=== PATIENT | female | born 1950 | race Caucasian/White ===

== ENCOUNTER 2016-12-23 12:21 | Emergency (ER) | payer MEDICARE, OTHER ==
[2015-06-15 14:44] VITALS: BMI 32.6
[~2016-12-23 12:21] MED LIST: ALBUTEROL2.5 MG/0.5 UPD; ASPIRIN325 MG PO; ATIVAN0.5 MG PO; ATROVENT 0.02%2.5 ML UPD; BROVANA15 MCG/2 M NEB; CARAFATE1 G PO; CELEXA20 MG PO; COUMADIN5 MG PO; DILANTIN100 MG PO; GABAPENTIN100 MG PO; GLUCOPHAGE1000 MG PO; MEVACOR20 MG PO; PLAVIX75 MG PO; PRILOSEC20 MG PO; PULMICORT0.25 MG/1 INH; SINGULAIR10 MG PO; ZESTORETIC 20/21 TAB PO
[2016-12-23 13:03] LABS: UDS - AMPHET NEGATIVE QUAL (NEGATIVE); UDS - BARB NEGATIVE QUAL (NEGATIVE); UDS - BENZO POSITIVE QUAL (NEGATIVE); UDS - COCAINE NEGATIVE QUAL (NEGATIVE); UDS - METH NEGATIVE QUAL (NEGATIVE); UDS - OPIATE POSITIVE QUAL (NEGATIVE); UDS - THC NEGATIVE QUAL (NEGATIVE)
[2016-12-23 13:04] LABS: BASOPHILS 0.2 % (0.0-2.0); EOSINOPHILS 0.7 % (0-7); HEMATOCRIT 40.6 % (36.0-48.0); HEMOGLOBIN 13.1 g/dL (12-16); IMMATURE GRANULOCYTES 0.1 % (0-5); LYMPHOCYTES 20.5 % (15-50); MCH 28.6 pg (26.0-34.0); MCHC 32.3 g/dL (31.0-37.0); MCV 88.6 fL (80.0-100.0); MEAN PLATELET VOLUME 8.8 fL (7.4-10.4); NEUTROPHILS 71.5 % (40-80); PLATELET COUNT 320 10x3/uL (130-400); RBC 4.58 10x6/uL (4.00-5.40); WBC 8.1 10x3/uL (4.8-10.8)
[2016-12-23 13:12] LABS: UDS - PCP NEGATIVE QUAL (NEGATIVE)
[2016-12-23 13:12] LABS: ALBUMIN 3.5 g/dL (3.4-5.0); ANION GAP 15.4 mmol/L (8-16); BILIRUBIN - TOTAL 0.2 mg/dL (0.2-1.3); CALCIUM 8.8 mg/dL (8.5-10.1); CARBON DIOXIDE 25.6 mmol/L (21.0-32.0); CREATININE - SERUM 1.2 mg/dL (0.6-1.3); PHENYTOIN (DILANTIN) 2.9 ug/mL (10.0-20.0); PROTEIN - SERUM 7.2 g/dL (6.4-8.2)
== END 2016-12-23 15:34 | disposition home or self-care (01) ==
LOC: D.ER 12:21
PROVIDERS: Emergency Medicine
DX: R56.9 Unspecified convulsions (principal); I95.9 Hypotension, unspecified; E83.42 Hypomagnesemia; I10 Essential (primary) hypertension; E11.9 Type 2 diabetes mellitus without complications

== ENCOUNTER 2016-12-25 13:39 | Emergency (ER) | payer MEDICARE, OTHER ==
[2015-06-15 14:44] VITALS: BMI 32.6
== END 2016-12-25 18:06 | disposition home or self-care (01) ==
LOC: D.ER 13:39
DX: R51 Headache (principal); W19.XXXA Unspecified fall, initial encounter; Y93.89 Activity, other specified; Y92.89 Other specified places as the place of occurrence of the external cause; I95.9 Hypotension, unspecified; R56.9 Unspecified convulsions; I10 Essential (primary) hypertension; E11.9 Type 2 diabetes mellitus without complications

== ENCOUNTER 2017-03-19 11:14 | Outpatient (CLI) | payer MEDICARE, OTHER ==
[~2017-03-19] VITALS: Ht 139.7 cm; Wt 65.9 kg
--- NOTE | ~2017-03-19 | HEMODYNAMI ---
PATIENT:KULWANT BONILLA MEDICAL RECORD: [id number] : 46 LOCATION:[facility] ADMISSION DATE: 03/19/17 Generatedon:03/19/201714:25 Patient name: KULWANT BONILLA Patient #: [id number] SSN: : 1950 Date of study: 03/19/2017 Page: Of Hemodynamic Procedure Report Patient Data Patient Demographics Procedure consent was obtained First Name: KULWANT Gender: Female Last Name: CHAD : 1950 [facility] Initial: AMBREEN Age: 66 year(s) Patient #: [id number] Race: Additional ID: [id number] Contact details [address]: [address] [place] [address] State: [place] City: [place] Zip code: [address] Past Medical History Allergies Allergen Reaction Date Comments Reported Sulfa drugs 03/19/2017 Admission Admission Data Admission Date: 03/19/2017 Admission Time: 11:14 Height (in.): 54.72 BSA: 1.53 (m2) Height (cm.): 139 BMI: 34.16 (kg/m2) Weight (lbs.): 145.51 Weight (kg.): 66 Lab Results Lab Result Date: 03/19/2017 Lab Result Time: 0:00 Biochemistry Name Units Result Min Max BUN mg/dl 14 --(--*-)-- 7 18 Creatinine mg/dl 1.1 --(--*-)-- 0.6 1.3 CBC Name Units Result Min Max Hemoglobin g/dl 13.4 -*(----)-- 13.5 17.5 Procedure Procedure Types Cath Procedure Diagnostic Procedure [facility] w/Coronaries Miscellaneous Procedures Moderate Sedation up to 15 minutes Procedure Description Procedure Date Procedure Date: 03/19/2017 Procedure Start Time: 14:05 Procedure Staff Name Function Odilon Guerra MD Performing Physician Laura Berkowitz RN Nurse Will Agrawal RT Scrub Yimi Phelan RT Monitor Procedure Data Cath Procedure Fluoroscopy Diagnostic fluoroscopy Total fluoroscopy Time: 1.7 time: 1.7 min min Diagnostic fluoroscopy Total fluoroscopy dose: 250 dose: 250 mGy mGy Contrast Material Contrast Material Type Amount (ml) Isovue 370 59 Entry Location Entry Primary Successful Side Size Upsize Upsize Entry Closure Succes sful Closure Location (Fr) 1 (Fr) 2 (Fr) Remarks Device Remarks Femoral Right 5 Fr Exoseal artery Diagnostic catheters Device Type Used For End Catheter Placement Cordis 5Fr JL 4.0 Left Coronary Catheter (MP) Angiography Cordis 5Fr 3DRC Catheter Right Coronary (MP) Angiography Cordis 5Fr Pigtail LV Angiography Catheter (MP) Procedure Medications Medication Administration Route Dosage Versed I.V. 1 mg Fentanyl I.V. 50 mcg Versed I.V. 1 mg Fentanyl I.V. 50 mcg 0.9% NaCl I.V. bolus 250 ml Hemodynamics Rest BSA: 1.53 (m2) HGB: 13.4 (g/dl) O2 Consumption: Estimated: 145.26 (ml/min) O2 Co nsumption indexed: Estimated:94.94 (ml/min/m) Heart Rate: 76 (bpm) Pressure Samples Time Site Value (mmHg) Purpose Heart Use Rate(bpm) 14:16 LV 100/4,17 Snapshot 87 14:17 AO 88/42(59) Pullback 97 14:17 LV 93/0,13 Pullback 97 Gradients Valve Time Site 1 Site 2 Mean SEP/DFP Peak To Heart Use (mmHg) (sec/min) Peak Rate (mmHg) (bpm) Aortic 14:17 LV AO 12 12 5 97 93/0,13 88/42(59) Calculations Valve P-P Mean Valve Index Valve Source Name Gradient Area Flow (cm2) Aortic 5 12 5 12 Snapshots Pre Cath Intra NCS Post Cath Vital Signs Time Heart Resp SPO2 NIBP (mmHg) Rhythm Pain Sedation Rate (ipm) (%) Status Level (bpm) 13:43:13 81 16 100 126/65(120) NSR 0 (11) 10(A) , No pain 13:47:25 81 15 100 122/71(99) NSR 0 (11) 10(A) , No pain 13:51:37 78 18 100 104/63(98) NSR 0 (11) 10(A) , No pain 13:55:45 81 19 97 91/55(74) NSR 0 (11) 10(A) , No pain 13:59:49 84 16 96 72/53(68) NSR 0 (11) 9(A) , No pain 14:03:46 87 16 96 67/51(64) NSR 0 (11) 9(A) , No pain 14:07:46 92 16 95 61/44(55) NSR 0 (11) 9(A) , No pain 14:11:39 92 16 96 73/53(69) NSR 0 (11) 9(A) , No pain 14:15:41 97 16 96 86/45(63) NSR 0 (11) 9(A) , No pain 14:20:32 95 19 94 79/46(76) NSR 0 (11) 9(A) , No pain 14:23:53 104 19 97 99/60(80) NSR 0 (11) 9(A) , No pain Medications Time Medication Route Dose Verified Delivered Reason Notes Effec tiveness by by 13:53:33 Versed I.V. 1 mg Odilon Laura for Eleuterio Berkowitz RN sedation 13:53:38 Fentanyl I.V. 50 Odilon Laura for mcg Eleuterio Berkowitz RN sedation 13:56:21 Versed I.V. 1 mg Odilon Laura for Eleuterio Berkowitz RN sedation 13:56:28 Fentanyl I.V. 50 Odilon Laura for mcg Eleuterio Berkowitz RN sedation 14:00:26 0.9% NaCl I.V. [address] guerra is bolus ml Eleuterio Berkowitz RN physician aware of pt's hypotensive state Procedure Log Time Note 13:11:15 Patient Weight : 66 kg 13:11:25 Patient Height : 139 cm 13:15:00 Barry Rivera RT(R) (CV) sent for patient. Start room use. 13:23:50 Diagnostic Cath status Elective 13:26:39 Time tracking: Regular hours 13:26:44 Plan of Care:Hemodynamics will remain stable., Cardiac rhythm will remain stable., Comfort level will be maintained., Respiratory function will remain adequate., Patient/ family verbilizes understanding of procedure., Procedure tolerated without complication., Recovers from procedure without complications.. 13:36:52 Patient received from Pre/Post Procedure Room to CCL 2 Alert and oriented. Tansferred to table in Supine position. 13:36:54 Warm blankets applied, and jamie hugger turned on for patient comfort. 13:36:54 Correct patient and procedure confirmed by team. 13:36:55 Signed procedure consent form obtained from patient. 13:36:55 ECG and BP/O2 sat monitors applied to patient. 13:42:06 Vital chart was started 13:44:12 Baseline sample Acquired. 13:44:16 Rhythm: sinus rhythm 13:44:18 Full Disclosure recording started 13:47:32 H&P Date Dictated: 03/15/2017 Within 30 days and on chart., H&P Addendum completed by physician on day of procedure. (MUST COMPLETE FOR ALL OUTPATIENTS). 13:47:34 Pre-procedure instructions explained to patient. 13:47:38 Pre-op teaching completed and patient verbalized understanding. 13:47:40 Family in waiting room. 13:47:42 Patient NPO since Breakfast. 13:47:52 Patient allergic to Sulfa drugs 13:47:56 Is the patient allergic to Iodine/contrast media? No. 13:47:58 Is patient on blood thinner?Yes 13:48:50 COUMADIN 5 DAYS AGO 13:48:57 Patient diabetic? Yes. 13:48:59 If diabetic: On Metformin? Yes 13:49:07 If on Metformin: Last Dose? 03/16/2017 13:49:13 Patient not . Patient is over age 55. 13:49:15 ----Pre-sedation anethsthesia assessment.---- 13:49:59 Previous problem with sedation/anesthesia? No WAS TOLD SHE DID, CAN NOT REMEMBER WHAT 13:50:03 Snore? No 13:50:05 Sleep apnea? No 13:50:16 Opens mouth fully? Yes 13:50:18 Sticks out tongue? Yes 13:50:27 Airway obstruction? Yes COPD 13:50:33 Dentures? Yes IN TIGHT 13:50:39 Pre procedure: right dorsailis pedis pulse 1+ Palpable, but thready & weak; easily obliterated 13:51:34 Patient pain scale 0/10 ?. 13:51:48 IV patent on arrival in left hand with 0.9% NaCl at [facility]. 13:52:40 Lab Result : BUN 14 mg/dl 13:52:40 Lab Result : Creatinine 1.1 mg/dl 13:52:40 Lab Result : Hemoglobin 13.4 g/dl 13:52:45 Lab results completed and on chart. 13:52:49 Right groin area was prepped with chlora-prep and draped in sterile fashion 13:52:50 Alarms reviewed by R. N. 13:52:50 Sharps counted by scrub and verified by R.N. 13:52:55 Physician arrived 13::55 --------ALL STOP TIME OUT------ 13:52:56 Final Timeout: patient, procedure, and site verified with staff and physician. All members of the team are in agreement. 13:52:59 Right groin site verified by team. 13:53:03 Physical assessment completed. ASA score P 2 - A patient with mild systemic disease as per Odilon Guerra MD. 13:53:07 Sedation plan: IV Moderate Sedation Versed, Fentanyl 13:53:33 Versed 1 mg I.V. was administered by Laura Berkowitz RN; for sedation; 13:53:38 Fentanyl 50 mcg I.V. was administered by Laura Berkowitz RN; for sedation; 13:55:13 Use device set Femoral Dx 13:55:15 Acist Syringe opened to sterile field. 13:55:16 Bag Decanter opened to sterile field. 13:55:16 Medline Cath Pack opened to sterile field. 13:55:17 Terumo 5Fr Cascilla Sheath opened to sterile field. 13:55:19 St Niko 260cm J .035 wire opened to sterile field. 13:55:20 Acist Hand Control opened to sterile field. 13:55:20 Acist Manifold opened to sterile field. 13:55:22 Diagnostic Infinity 5Fr Multipack catheter opened to sterile field. 13:55:22 Tegaderm 4 x 4 opened to sterile field. 13:56:21 Versed 1 mg I.V. was administered by Laura Berkowitz RN; for sedation; 13:56:28 Fentanyl 50 mcg I.V. was administered by Laura Berkowitz RN; for sedation; 14:00:26 0.9% NaCl 250 ml I.V. bolus was administered by Laura Berkowitz RN; Per physician; dr guerra is aware of pt's hypotensive state 14:05:38 Procedure started. 14:05:45 Local anesthetic to right femoral artery with Lidocaine 2% by Odilon Guerra MD.INITIAL ACCESS ONLY 14:07:16 A 5 Fr sheath was inserted into the Right Femoral artery 14:11:32 A Cordis 5Fr JL 4.0 Catheter (MP) was advanced over the wire and used for Left Coronary Angiography. 14:11:35 LCA angiography performed. 14:13:41 Catheter removed. 14:13:59 A Cordis 5Fr 3DRC Catheter (MP) was advanced over the wire and used for Right Coronary Angiography. 14:15:24 RCA angiography performed. 14:17:36 A Cordis 5Fr Pigtail Catheter (MP) was advanced over the wire and used for LV Angiography. 14:19:11 Cordis 5Fr Exoseal opened to sterile field. 14:19:24 Sheath removed intact; hemostasis achieved with Exoseal to the Right Femoral artery. 14:20:23 Procedure ended.(Physican Out) 14:21:04 Fluoroscopy time 01.70 minutes. 14:21:11 Fluoroscopy dose: 250 mGy 14:21:11 Flurop Dose total: 250 14:21:52 Contrast amount:Isovue 370 59ml. 14:21:56 Sharps counted by scrub and verified by R.N. 14:21:59 Insertion/operative site no bleeding no hematoma. 14:22:02 Post-op/insertion site Right Femoral artery dressed using a 4 x 4 and Tegaderm. 14:22:05 Post right femoral artery:stable 14:22:07 Post Procedure Pulses reassessed and unchanged 14:22:11 Post-procedure physical assessment completed. ASA score P 2 - A patient with mild systemic disease as per Odilon Guerra MD. 14:22:17 Post procedure rhythm: unchanged. 14:22:48 Post procedure instruction explained to patient.Patient verbalizes understanding. 14:22:49 Procedure and supply charges have been captured, reviewed, submitted and are correct. 14:23:29 Procedure type changed to Cath procedure, Diagnostic procedure, LHC, LHC w/Coronaries, Miscellaneous Procedures, Moderate Sedation up to 15 minutes 14:24:56 Report given to Pre/Post Procedure Room. 14:24:59 Patient transfered to Pre/Post Procedure Room with Stretcher. 14:25:29 Vital chart was stopped Device Usage Item Name Manufacture Quantity Catalog Hospital Part Current Minimal Lo t# / Number Charge Number Stock Stock Serial# Code Acist Acist 1 [id number] [id number] 141874 735685 20 Syringe Medical [employer] Inc Bag Microtek 1 2002S 835667 77349 360217 5 Decanter Medical Inc. Medline Cardinal 1 [id number] 30689 399928 5 Cath Pack Health Terumo 5Fr Terumo 1 [id number] 467317 803409 169083 [address] Niko St Niko 1 038114 412576 555279 976343 30 260cm J .035 wire Acist Hand Acist 1 29305 938327 663501 634816 5 Control Medical Systems Inc Acist Acist 1 88616 191156 253388 283720 5 Manifold Medical Systems Inc Diagnostic Cardinal 1 [id number] 588711 29025 608096 30 Infinity Health 5Fr Multipack catheter Tegaderm 4 3M 1 1626W 628715 125698 342186 5 x 4 Cordis 5Fr Cardinal 1 393459 5 JL 4.0 Health Catheter (MP) Cordis 5Fr Cardinal 1 317032 5 3DRC Health Catheter (MP) Cordis 5Fr Cardinal 1 855013 5 Pigtail Health Catheter (MP) Cordis 5Fr Cardinal 1 EX500 492380 412903 905536 10 17 888798 [facility] Smava Signature Audit [place] Stage Time Signature Unsigned Intra-Procedure 03/19/2017 Yimi 2:25:26 PM Shuffield RT (R) (CV) Signatures Monitor : Yimi Signature : Johanaield RT Date : Time : [facility] [address] [place] [address]
[2017-03-19] MEDS ORDERED: LANTUS INSULIN10 ML SC (11:37)
[2017-03-19] MEDS ORDERED: OMEPRAZOLE20 M1 PO (11:37)
[2017-03-19] MEDS ORDERED: XALATAN 0.0052.5 ML EACH EYE (11:38)
[2017-03-19] MEDS ORDERED: LOVASTATIN20 MG PO (11:39)
[2017-03-19] MEDS ORDERED: PEPCID AC20 MG PO (11:39)
[2017-03-19] MEDS ORDERED: PROVENTIL HFA6.7 GM INH (11:39)
[2017-03-19] MEDS ORDERED: ULTRAM50 MG PO (11:40)
[2017-03-19 11:48] VITALS: BP 129/63; Ht 139.7 cm; Wt 65.9 kg
[2017-03-19 11:53] LABS: BASOPHILS 0.5 % (0-2); EOSINOPHILS 1.4 % (0-7); HEMATOCRIT 40.5 % (36.0-48.0); HEMOGLOBIN 13.4 g/dL (12-16); IMMATURE GRANULOCYTES 0.2 % (0-5); LYMPHOCYTES 29.2 % (15-50); MCH 28.9 pg (26.0-34.0); MCHC 33.1 g/dL (31.0-37.0); MCV 87.5 fL (80.0-100.0); MEAN PLATELET VOLUME 9.1 fL (7.4-10.4); MONOCYTES 9.4 % (2-11); NEUTROPHILS 59.3 % (40-80); PLATELET COUNT 285 10x3/uL (130-400); RBC 4.63 10x6/uL (4.00-5.40); RDW 13.6 % (11.5-14.5); WBC 5.7 10x3/uL (4.8-10.8)
[2017-03-19 12:01] LABS: ANION GAP 13.8 mmol/L (8-16); CALCIUM 9.2 mg/dL (8.5-10.1); CARBON DIOXIDE 25.2 mmol/L (21.0-32.0); CREATININE - SERUM 1.1 mg/dL (0.6-1.3)
[2017-03-19 13:03] LABS: INR 1.05 (0.85-1.17); PROTIME 13.6 SECONDS (11.6-15.0)
--- NOTE | 2017-03-19 14:45 | NUR ---
1440 RECEIVED PT FROM EAR FLAP BINDER, PT IS DROWSY, DENIES ANY C/O. DRESSING TO RIGHT GROIN IS CDI, AREA IS SOFT AND NON-TENDER. PEDAL PULSES PALPABLE. RR EVEN AND UNLABORED. NORMAL SINUS RHYTHM. PT INSTRUCTED TO KEEP HEAD TO PILLOW AND RIGHT LEG STRAIGHT, PT VERBALIZES UNDERSTANDING. AT BEDSIDE, CALL LIGHT IN REACH.
--- NOTE | 2017-03-19 15:15 | NUR ---
NO CHANGES IN RIGHT GROIN, AT SIDE
--- NOTE | 2017-03-19 16:50 | NUR ---
IV D'C WITH CATH TIP INTACT, UP TO RESTROOM- VOID, DENIES PAIN, WRITTEN AND VERBAL INSTRUCTIONS GIVEN. D'C HOME WITH .
== END 2017-03-19 17:10 | disposition home or self-care (01) ==
LOC: D.CATH 11:14
PROVIDERS: Internal Medicine Cardiovascular Disease
DX: I20.9 Angina pectoris, unspecified (principal); Z01.812 Encounter for preprocedural laboratory examination

== ENCOUNTER → 2017-08-14 16:30 | Outpatient (CLI) | payer MEDICARE, OTHER ==
[2017-03-19 11:48] VITALS: BMI 33.7
[~2017-08-14 16:30] MED LIST changes: +LANTUS INSULIN10 ML SC; +LOVASTATIN20 MG PO; +OMEPRAZOLE20 M1 PO; +PEPCID AC20 MG PO; +PROVENTIL HFA6.7 GM INH; +ULTRAM50 MG PO; +XALATAN 0.0052.5 ML EACH EYE
== END | disposition home or self-care (01) ==
LOC: D.MAMMO 14:30
DX: Z12.31 Encounter for screening mammogram for malignant neoplasm of breast (principal)

== ENCOUNTER 2017-09-27 20:38 | Emergency (ER) | payer MEDICARE, OTHER ==
[2017-03-19 11:48] VITALS: BMI 33.7
[2017-09-27 21:53] LABS: APTT 33.3 SECONDS (22.8-39.4); INR 2.38 (0.85-1.17); PROTIME 25.3 SECONDS (11.6-15.0)
[2017-09-27 21:57] LABS: BASOPHILS 0.3 % (0-2); EOSINOPHILS 1.5 % (0-7); HEMATOCRIT 41.3 % (36.0-48.0); HEMOGLOBIN 13.1 g/dL (12-16); IMMATURE GRANULOCYTES 0.1 % (0-5); LYMPHOCYTES 28.8 % (15-50); MCH 28.8 pg (26.0-34.0); MCHC 31.7 g/dL (31.0-37.0); MCV 90.8 fL (80.0-100.0); MEAN PLATELET VOLUME 9.3 fL (7.4-10.4); MONOCYTES 11.6 % (2-11); NEUTROPHILS 57.7 % (40-80); PLATELET COUNT 266 10x3/uL (130-400); RBC 4.55 10x6/uL (4.00-5.40); RDW 13.4 % (11.5-14.5); WBC 9.1 10x3/uL (4.8-10.8)
[2017-09-27 22:06] LABS: ALBUMIN 3.7 g/dL (3.4-5.0); ANION GAP 18.2 mmol/L (8-16); CALCIUM 8.9 mg/dL (8.5-10.1); CARBON DIOXIDE 22.4 mmol/L (21.0-32.0); CREATININE - SERUM 1.1 mg/dL (0.6-1.3); PHENYTOIN (DILANTIN) 3.9 ug/mL (10.0-20.0); POTASSIUM - SERUM 4.6 mmol/L (3.5-5.1); PROTEIN - SERUM 7.1 g/dL (6.4-8.2)
[2017-09-27 22:12] LABS: BILIRUBIN - TOTAL 0.07 mg/dL (0.2-1.3)
[2017-09-28 00:12] LABS: APPEARANCE CLEAR (CLEAR); BILIRUBIN NEGATIVE (NEGATIVE); COLOR YELLOW (YELLOW); GLUCOSE NEGATIVE (NEGATIVE); KETONE NEGATIVE (NEGATIVE); NITRITE NEGATIVE (NEGATIVE); PROTEIN NEGATIVE (NEGATIVE); UROBILINOGEN NORMAL (NORMAL)
[2017-09-28 00:19] LABS: UDS - AMPHET NEGATIVE QUAL (NEGATIVE); UDS - BARB NEGATIVE QUAL (NEGATIVE); UDS - BENZO POSITIVE QUAL (NEGATIVE); UDS - COCAINE NEGATIVE QUAL (NEGATIVE); UDS - OPIATE POSITIVE QUAL (NEGATIVE); UDS - PCP NEGATIVE QUAL (NEGATIVE); UDS - THC NEGATIVE QUAL (NEGATIVE)
== END 2017-09-28 00:57 | disposition home or self-care (01) ==
LOC: D.ER 20:38
PROVIDERS: Emergency Medicine; Physician Assistant Medical
DX: R56.9 Unspecified convulsions (principal); R41.82 Altered mental status, unspecified; I10 Essential (primary) hypertension; E11.9 Type 2 diabetes mellitus without complications

== ENCOUNTER → 2017-10-14 13:59 | Outpatient (CLI) | payer MEDICARE, OTHER ==
[2017-03-19 11:48] VITALS: BMI 33.7
== END | disposition home or self-care (01) ==
LOC: D.MAMMO 09-13 11:30 → D.US 09-13 13:00 → D.MAMMO 13:30
DX: R92.8 Other abnormal and inconclusive findings on diagnostic imaging of breast (principal)

== ENCOUNTER 2017-12-26 13:08 | Emergency (ER) | payer MEDICARE, OTHER ==
[2017-03-19 11:48] VITALS: BMI 33.7
[2017-12-26 14:17] LABS: BASOPHILS 0.3 % (0-2); EOSINOPHILS 3.5 % (0-7); HEMATOCRIT 41.7 % (36.0-48.0); HEMOGLOBIN 13.5 g/dL (12-16); IMMATURE GRANULOCYTES 0.2 % (0-5); LYMPHOCYTES 37.2 % (15-50); MCH 29.4 pg (26.0-34.0); MCHC 32.4 g/dL (31.0-37.0); MCV 90.8 fL (80.0-100.0); MONOCYTES 8.5 % (2-11); NEUTROPHILS 50.3 % (40-80); PLATELET COUNT 217 10x3/uL (130-400); RBC 4.59 10x6/uL (4.00-5.40); RDW 13.9 % (11.5-14.5)
[2017-12-26 14:22] LABS: INR 3.09 (0.85-1.17); PROTIME 31.1 SECONDS (11.6-15.0)
[2017-12-26 14:24] LABS: APTT 36.2 SECONDS (22.8-39.4)
[2017-12-26 14:25] LABS: D-DIMER-QUANTITATIVE < 0.27 ug/mLFEU (0.20-0.54)
[2017-12-26 14:28] LABS: ALBUMIN 3.6 g/dL (3.4-5.0); ALKALINE PHOSPHATASE 193 U/L (46-116); ALT (SGPT) 29 U/L (10-68); BILIRUBIN - TOTAL 0.12 mg/dL (0.2-1.3); CALC OSMOLALITY 271 mosm/kg (275-300); CALCIUM 8.3 mg/dL (8.5-10.1); CARBON DIOXIDE 22.9 mmol/L (21.0-32.0); CHLORIDE - SERUM 100 mmol/L (98-107); CREATININE - SERUM 1.2 mg/dL (0.6-1.3); GLUCOSE 125 mg/dL (74-106); POTASSIUM - SERUM 5.1 mmol/L (3.5-5.1); PROTEIN - SERUM 7.2 g/dL (6.4-8.2); SODIUM 135 mmol/L (136-145); UREA NITROGEN 16 mg/dL (7-18); eGFR NON AFRICAN AMERICAN 47 mL/min (90-120)
[2017-12-26 14:39] LABS: CKMB 0.7 U/L (0.0-3.6); CREATINE KINASE 50 UL (21-215)
[2017-12-26 14:55] LABS: TROPONIN-I < 0.017 ng/mL (0.000-0.060)
== END 2017-12-26 17:59 | disposition home or self-care (01) ==
LOC: D.ER 13:08
PROVIDERS: Family Medicine
DX: E11.649 Type 2 diabetes mellitus with hypoglycemia without coma (principal); I10 Essential (primary) hypertension

== ENCOUNTER → 2018-09-11 12:22 | Outpatient (CLI) | payer MEDICARE, OTHER ==
[2017-03-19 11:48] VITALS: BMI 33.7
== END | disposition home or self-care (01) ==
LOC: D.RAD 12:22
DX: R13.12 Dysphagia, oropharyngeal phase (principal)

== ENCOUNTER 2019-01-28 19:00 | Outpatient (CLI) | payer MEDICARE, OTHER ==
[2017-03-19 11:48] VITALS: BMI 33.7
== END 2019-01-28 23:59 | disposition home or self-care (01) ==
LOC: D.MAMMO 19:00
PROVIDERS: ATTEND Family Medicine
DX: R92.8 Other abnormal and inconclusive findings on diagnostic imaging of breast (principal)

== ENCOUNTER → 2019-02-13 08:28 | Outpatient (CLI) | payer MEDICARE, OTHER ==
[2017-03-19 11:48] VITALS: BMI 33.7
[~2019-02-13 08:28] MED LIST changes: +ELIQUIS5 MG PO; +EZFE 200200 MG PO; +KEPPRA500 MG PO; +LEVOTHYROXINE75 MCG PO; +LOPRESSOR25 MG PO; +ZONEGRAN100 MG PO
== END | disposition home or self-care (01) ==
LOC: D.RT 08:28
PROVIDERS: ATTEND Internal Medicine Pulmonary Disease
DX: J45.909 Unspecified asthma, uncomplicated (principal)

== ENCOUNTER 2019-03-26 08:49 | Inpatient (IN) | payer MEDICARE, OTHER ==
[2019-03-25 10:57] LABS: HEMATOCRIT 42.5 % (36.0-48.0); HEMOGLOBIN 14.4 g/dL (12-16); MCH 30.4 pg (26.0-34.0); MCHC 33.9 g/dL (31.0-37.0); MCV 89.7 fL (80.0-100.0); MEAN PLATELET VOLUME 8.6 fL (7.4-10.4); RBC 4.74 10x6/uL (4.00-5.40); RDW 13.4 % (11.5-14.5); WBC 7.5 10x3/uL (4.8-10.8)
[2019-03-25 11:24] LABS: ANION GAP 16.8 mmol/L (8-16); CALCIUM 8.4 mg/dL (8.5-10.1); CARBON DIOXIDE 24.2 mmol/L (21.0-32.0); CREATININE - SERUM 0.9 mg/dL (0.6-1.3)
[~2019-03-26] VITALS: Ht 139.7 cm; Wt 69.1 kg
[2019-03-26] VITALS (7 sets, daily range): BP systolic 99–161; BP diastolic 52–81; Ht 139.7 cm; Wt 69.1 kg
--- NOTE | ~2019-03-26 | OP ---
PATIENT NAME: KULAWNT BONILLA MEDICAL RECORD: [id number] :46 LOCATION:[facility] D.2308 ADMISSION DATE: SURGEON: MIKO GILLILAND DATE OF OPERATION: 03/26/2019 SURGEON: Miko Gilliland DPM PREOPERATIVE DIAGNOSIS: Hallux abductovalgus deformity, right foot. POSTOPERATIVE DIAGNOSIS: Hallux abductovalgus deformity, right foot. PROCEDURE: Timo bunionectomy, right foot. ANESTHESIA: Local with monitored anesthesia care. HEMOSTASIS: Pneumatic ankle tourniquet inflated to 250 mmHg. ESTIMATED BLOOD LOSS: Minimal. MATERIALS: One 2.5-mm [employer] headless Dart-Fire screw. INJECTABLES: A 10 cc of 0.5% bupivacaine plain. INDICATIONS: The patient has long-standing history of pain associated with the right foot deformity. We have discussed the proposed procedure. Risks and benefits were reviewed. Complications were discussed. All questions were answered. She was appropriately consented for Timo bunionectomy of right foot. DESCRIPTION OF PROCEDURE: The patient was brought in the operating room and placed on the operating table in supine position. Time-out was called with Dr. Gilliland, who identified the patient, the surgical site, and the surgery to be performed. Once appropriate anesthesia was obtained, the foot was prepped and draped in the usual aseptic manner. Procedure was Timo bunionectomy, right foot. Attention was directed to the dorsal aspect of the first metatarsophalangeal joint, where a 6-cm linear incision was made just medial to the extensor hallucis longus tendon. This incision was carried deep to soft tissue with care being taken to retract all vital neurovascular structures. All bleeders were cauterized along the way. The first intermetatarsal space was then entered utilizing both sharp and blunt dissection. The conjoined tendon of the adductor hallucis muscle was noted at the base of the proximal phalanx and it was sharply transected at this level. Attention was directed further proximally to the level of the fibular sesamoidal ligament and it was sharply transected as well. Attention was then directed to the dorsal aspect of the first metatarsophalangeal joint. The periosteum was reflected from the head of the first metatarsal and the base of the proximal phalanx, thus revealing the first metatarsophalangeal joint. Utilizing a sagittal saw, the hypertrophied medial eminence of the first metatarsal was resected. The sagittal saw was then utilized to create a V-shaped osteotomy in the head of the first metatarsal. This was a V-shaped osteotomy with the apex oriented distally. It was a [id number] osteotomy. The capital fragment was translocated laterally and impacted upon the first metatarsal shaft. OPERATIVE REPORT [id number] BONILLAUKLWANTMendy CROOK Next, utilizing team manager's recommended technique, one 2.5-mm x 18-mm screw was placed across the osteotomy. All remaining overhanging bone from the medial aspect of the first metatarsal shaft was resected. Excellent fixation was noted after placement of the screw. The surgical site was then irrigated with copious amounts of normal sterile saline via bulb syringe. The periosteum was reapproximated and coapted using 3-0 Vicryl. The subcutaneous was reapproximated and coapted using 4-0 Vicryl. The skin was reapproximated and coapted using 4-0 nylon. A dressing consisting of Xeroform, 4 x 4's, Kerlix, and Coban was applied to the right foot. The pneumatic ankle tourniquet was deflated and cap refill time was immediate to all digits of the right foot. The patient tolerated the procedure and the anesthesia well. She left the operating room with vital signs stable and capillary refill time intact. The patient was discharged home with instructions to ice and elevate the right foot. She was dispensed a boot to further help offload the foot. She has my cell phone number for any afterhours difficulties. There were no complications with this case. We will follow up with her in one week in the office. TRANSINT:[id number] Voice Confirmation ID: [id number] DOCUMENT ID: [id number] MIKO GILLILAND CC: [id number] DICTATION DATE: 03/26/19 164 SAWMILL EQUIPMENT OPERATOR: 03/26/19 1814 [facility] [address] [place] [address]
--- NOTE | ~2019-03-26 | CN ---
PATIENT NAME:KULWANT BONILLA MEDICAL RECORD: [id number] : 46 LOCATION:MIGUELD.2308 ADMIT DATE: ACCOUNT: [id number] CONSULTING PHYSICIAN: BRANDON HOUSTON MD REFERRING PHYSICIAN: MIKO ESQUIVEL DATE OF CONSULTATION: 03/26/2019 MEDICAL CONSULT REASON FOR CONSULTATION: Medical management of the patient postoperatively with seizures. HISTORY OF PRESENT ILLNESS: The patient is a 68-year-old female with long-standing history of generalized tonic-clonic seizures. She is followed by Dr. Nayana Yuan, neurologist at [facility]. She underwent elective right bunionectomy today, and in recovery, reportedly had a tonic-clonic seizure. She had her Dilantin this morning but not her Keppra, gabapentin, or zonisamide. She had been postictal for approximately one hour and now is awake and talking coherently. She denies headache or visual change. She had a seizure with UTI in September of this year, treated at [facility]. She had been on Vimpat in the past and apparently this has been discontinued. She otherwise feels well. PAST MEDICAL HISTORY: Chronic seizure disorder, COPD, chronic renal insufficiency with unilateral left kidney, type 2 diabetes mellitus, GERD, essential hypertension, hyperlipidemia, inflammatory arthritis, peptic ulcer disease history, remote history of pulmonary embolus, history of esophageal stricture, and lumbar spondylolisthesis. PAST SURGICAL HISTORY: Appendectomy. She has had lumbar discectomy, cholecystectomy, hysterectomy, PTCA, fixation of unstable patella, and right bunionectomy today. She has had carpal tunnel release on the right and left, and had total knee arthroplasty on the right in 2013. ALLERGIES: SULFA. FAMILY HISTORY: Father , had heart disease and diabetes. SOCIAL HISTORY: Former smoker, quit 34 years ago. She does not use alcohol. HOME MEDICATIONS: Eliquis 5 mg a day, Mevacor 20 mg at bedtime, Dilantin 400 mg b.i.d., Singulair 10 mg at bedtime, metformin 1000 mg b.i.d., omeprazole 20 mg p.o. daily, levothyroxine 75 mcg p.o. q.a.m. a.c., zonisamide 100 mg p.o. b.i.d., gabapentin 300 mg p.o. t.i.d., Keppra 500 mg p.o. b.i.d., famotidine 40 mg b.i.d., Ventolin HFA one puff q. 4 hours p.r.n., latanoprost 0.005% eyedrops one drop in both eyes at bedtime, Ativan 0.5 mg b.i.d. p.r.n. anxiety, and Lantus SoloSTAR insulin 20 units subcutaneous at bedtime. REVIEW OF SYSTEMS: GENERAL: No recent fever or fatigue. HEENT: No recent visual change, sinus congestion, or sore throat. RESPIRATORY: No SOB or cough. CARDIAC: No chest pain, claudication, or edema. GASTROINTESTINAL: No nausea, vomiting, change in stools, or blood per rectum. GENITOURINARY: No incontinence. GYNECOLOGIC: No vaginal bleeding. CONSULT REPORT [id number] KULWANT BONILLA ENDOCRINE: Denies polyuria, polydipsia, heat or cold intolerance. NEUROLOGIC: She has had history of TIA and recurrent chronic seizures for years. MUSCULOSKELETAL: She has pain in her right foot postoperatively and she has moderate lumbar disc pain as well without sciatica. INTEGUMENT: No recent rash or itching. PSYCHIATRIC: Denies depressed mood. PHYSICAL EXAMINATION: VITAL SIGNS: Temperature 97.2 Fahrenheit orally, pulse 84 and regular, respirations are 16, blood pressure is 120/54 with sat of 90% on 2 liters. GENERAL: Alert and oriented. HEENT: Eyes are clear. Pupils are reactive. Lens implants in each eye. Sclerae nonicteric. Oropharynx unremarkable. Her tongue is atraumatic as are her lips. NECK: Supple. CHEST: Clear. HEART: Regular rate. ABDOMEN: Obese, soft, and nontender. No organomegaly. GENITOURINARY: Deferred. EXTREMITIES: She has a healed right total knee replacement scar over the right. Her right foot is in an operative ankle high walking boot with dressing postoperative. Left leg is unremarkable. NEUROLOGIC: She is oriented to person, place, and time. Cranial nerves are grossly intact. Gait was not tested. LABORATORY DATA: Dilantin and Keppra levels are pending. Her white count is 5600 with H&H of 14 and 42.2 respectively. Chemistry is unremarkable with glucose of 106. Cardiac enzymes are negative. DIAGNOSTIC DATA: Preoperative chest x-ray shows chronic COPD changes, some atelectasis in the left mid lung, and right apical pleural calcification. ASSESSMENT: History of chronic seizure disorder with seizure postoperatively, probably due to missing neuroleptic drugs and n.p.o. status; diabetes mellitus; hypertension; hyperlipidemia; history of PE, on lifetime anticoagulation; and lumbar spondylolisthesis. PLAN: The patient will be monitored in the ICU. We will place on IV fluids tonight. Advance diet as tolerated. P.R.N. Ativan as needed. We will check Dilantin and Keppra levels. We will confirm her appropriate neuroleptic drug dosages with the pharmacy as there is some question at this time in the patient's mind. TRANSINT:[id number] Voice Confirmation ID: [id number] DOCUMENT ID: [id number] BRANDON HOUSTON MD CC: [id number] DICTATION DATE: 03/26/191816 PASTE MIXING SUPERVISOR: 03/26/192023 [facility] [address] [id number]
[~2019-03-26 08:49] MED LIST changes: -LOPRESSOR25 MG PO
[2019-03-26] MEDS ORDERED: LOPRESSOR25 MG PO (10:00)
[2019-03-26 13:48] LABS: BASOPHILS 0.5 % (0-2); EOSINOPHILS 1.6 % (0-7); HEMATOCRIT 42.2 % (36.0-48.0); IMMATURE GRANULOCYTES 0.4 % (0-5); LYMPHOCYTES 38.2 % (15-50); MCH 29.9 pg (26.0-34.0); MCHC 33.2 g/dL (31.0-37.0); MCV 90.2 fL (80.0-100.0); MEAN PLATELET VOLUME 8.7 fL (7.4-10.4); MONOCYTES 9.5 % (2-11); NEUTROPHILS 49.8 % (40-80); PLATELET COUNT 223 10x3/uL (130-400); RBC 4.68 10x6/uL (4.00-5.40); RDW 13.7 % (11.5-14.5)
[2019-03-26 13:54] LABS: WBC 5.6 10x3/uL (4.8-10.8)
[2019-03-26 14:01] LABS: CALC OSMOLALITY 283 mosm/kg (275-300); CALCIUM 8.3 mg/dL (8.5-10.1); CARBON DIOXIDE 26.2 mmol/L (21.0-32.0); CHLORIDE - SERUM 107 mmol/L (98-107); CREATININE - SERUM 0.8 mg/dL (0.6-1.3); GLUCOSE 106 mg/dL (74-106); PHENYTOIN (DILANTIN) 11.7 ug/mL (10.0-20.0); POTASSIUM - SERUM 4.5 mmol/L (3.5-5.1); SODIUM 143 mmol/L (136-145); UREA NITROGEN 11 mg/dL (7-18); eGFR NON AFRICAN AMERICAN 75 mL/min (90-120)
[2019-03-26 14:17] LABS: CREATINE KINASE 37 UL (21-215); TROPONIN-I < 0.017 ng/mL (0.000-0.060)
--- NOTE | 2019-03-26 14:33 | NUR ---
RECEIVED PATIENT. HOOKED UP TO MONITOR. AWAKE ALERT AND ORIENTED. VSS. WILL CHECK ORDERS AND MONITOR
--- NOTE | 2019-03-26 15:15 | NUR ---
AT 1232 PATIENT STATED TO ME THAT SHE WAS STARTING TO HAVE MID STERNAL CHEST PAIN, SHARP IN NATURE. WHEN I ASKED HER IF HER PAIN WAS CONSTANT OR INTERMITTENT SHE TOLD ME THAT IT WAS CONSTANT. AT THIS TIME, PATIENT ROLLED HER EYES BACK IN HER HEAD AND BECAME UNRESPONSIVE AND WENT UNCONSCIOUS. BLOOD PRESSURE 106/69, HR 84, RESPIRATIONS 23, PCO2 DROPPED FROM 98% TO 84%. ANESTHESIA WAS CONSULTED. DR PETERSON AND MILADIS CALHOUN,CONCRETE CRAFTSMAN AT BEDSIDE. AT 1235 PT BEGAN ACTIVELY HAVING A SEIZURE, HER HANDS WERE DRAWN UP, EYES CLOSED AND WOULD NOT RESPOND TO ANY STIMULI. AT 1240 VERBAL ORDERS RECEIVED PER DR. PETERSON TO ADMINISTER VERSED 2MG STAT IN PACU NOW. ORDERS RECEIVED AND IMPLEMENTED. WILL CONTINUE TO MONITOR.
--- NOTE | 2019-03-26 15:24 | NUR ---
AT [address] ROSE (MED CONSTRUCTION GRIP) TO COME AND EVALUATE THIS PATIENT IN PACU.
--- NOTE | 2019-03-26 15:26 | NUR ---
AT 1245 DR PETERSON ORDERED A STAT EKG AND STAT LAB WORK. ORDERS RECEIVED AND IMPLEMENTED. WILL CONTINUE TO MONITOR.
--- NOTE | 2019-03-26 15:27 | NUR ---
AT 1310 DR. ROSE WAS AT BEDSIDE IN PACU. HE GAVE ME VERBAL ORDERS TO CALL THE WASTE WATER WORKER AND ADMIT THIS PATIENT TO ICU. I THEN CALLED ROSE MARIE AMBRIZAPPLICATION SUPPORT ADMINISTRATOR TO ARRANGE FOR THIS PATIENT TO BE ADMITTED TO ICU.
--- NOTE | 2019-03-26 16:06 | NUR ---
AT 1250 EKG DONE AND REVIEWED BY DR. PETERSON. NO EKG CHANGES NOTED. NO NEW ORDERS RECEIVED FROM DR. PETERSON. WILL CONTINUE TO MONITOR.
--- NOTE | 2019-03-26 16:07 | NUR ---
AT 1318 PATIENT STARTED HAVING ANOTHER SEIZURE. DR PETERSON AT BEDSIDE. VERBAL ORDERS RECEIVED FROM DR. PETERSON TO ADMINISTER VERSED 2MG STAT IN PACU NOW. ORDERS RECEIVED AND IMPLEMENTED. WILL CONTINUE TO MONITOR.
--- NOTE | 2019-03-26 16:10 | NUR ---
AT 1350 DR. PETERSON AT BEDSIDE. PATIENT STABLE. NO ACTIVE SEZURE NOTED. SEE VITAL SIGN RECORD. PATIENT WILL NOW BE TRANSFERRED TO ICU ROOM 2308. WILL CONTINUE TO MONITOR.
--- NOTE | 2019-03-26 16:17 | NUR ---
AT [address]250 DR. ESQUIVEL WAS INFORMED OF THE ABOVE. IT WAS THEN DECIDED BY DR. PETERSON AND DR. ESQUIVEL TO CONSULT MED SECURITY SERVICES MANAGER, DR. ROSE FOR ADMISSION. WILL CONTINUE TO MONITOR.
--- NOTE | 2019-03-26 17:00 | NUR ---
PATIENT STABLE. DR. HOUSTON CONSULTED AND CAME TO RESTART MEDICATION.
--- NOTE | 2019-03-26 19:52 | NUR ---
PT RECEIVED WITH EYES OPEN. VSS. NO NEEDS MADE KNOWN. ASSESSMENT COMPLETED, SEE FLOW SHEET. WILL CONTINUE TO OBSERVE.
--- NOTE | 2019-03-26 22:20 | NUR ---
HS MEDICATIONS GIVEN PER MAR, TOLERATED WELL. NO COMPLAINTS OF PAIN. ASSISTED WITH BEDPAN, 400ML CLEAR YELLOW URINE NOTED. CALL LIGHT IN REACH. WILL CONTINUE TO OBSERVE.
--- NOTE | 2019-03-26 23:48 | NUR ---
REASSESSMENT COMPLETED, SEE FLOW SHEET. CALL LIGHT IN REACH. WILL CONTINUE TO OBSERVE.
[2019-03-27] VITALS (11 sets, daily range): BP systolic 91–140; BP diastolic 46–91
--- NOTE | 2019-03-27 02:27 | NUR ---
PT RESTING WITH EYES CLOSED AND CHEST RISING. EASILY AWOKEN TO VERBAL STIMULI. NO NEEDS NOTED. WILL CONTINUE TO OBSERVE.
--- NOTE | 2019-03-27 03:19 | NUR ---
PT HAD SIEZURE NOTE AT 300 AND STOPPED AT 314. PRN ATIVAN GIVEN IV PER NOV. PT ABLE TO FOLLOW COMMANDS. NURSING STAFF AT PT BEDSIDE DURING SEIZURE FOR SAFETY, PT SHOOK ARMS MOSTLY WITH SMALL AMOUNT STARTING SLOW AND GRADUALLY INCREASED THEN GRADUAL DECREASE. WITH EYES OPEN AT THIS TIME WATCHING TV. NO NEEDS MADE KNOWN. CALL LIGHT IN REACH. WILL CONTINUE TO OBSERVE.
[2019-03-27 04:09] LABS: HEMATOCRIT 38.9 % (36.0-48.0); HEMOGLOBIN 12.9 g/dL (12-16); MCH 30.1 pg (26.0-34.0); MCHC 33.2 g/dL (31.0-37.0); MCV 90.9 fL (80.0-100.0); PLATELET COUNT 225 10x3/uL (130-400); RBC 4.28 10x6/uL (4.00-5.40); WBC 5.9 10x3/uL (4.8-10.8)
[2019-03-27 04:42] LABS: LYMPHOCYTES 35 % (15-50); MONOCYTES 15 % (2-11); NEUTROPHILS 50 % (40-80)
[2019-03-27 04:43] LABS: ANION GAP 17.3 mmol/L (8-16); CARBON DIOXIDE 22.2 mmol/L (21.0-32.0); CREATININE - SERUM 0.9 mg/dL (0.6-1.3); PLATELET ESTIMATE NORMAL; POTASSIUM - SERUM 4.5 mmol/L (3.5-5.1)
--- NOTE | 2019-03-27 09:07 | NUR ---
DR JOHNSON BY TO SEE PATIENT. DISCUSSED TAKING MEDICATIONS AND OK TO GO HOME FROM HIS STANDPOINT.
--- NOTE | 2019-03-27 09:28 | NUR ---
SPOKE WITH RUSS AT DR LIVE OFFICE ABOUT DR JOHNSON SAYING PT COULD GO HOME. DR LIVE IS OK FOR HER TO DISCHARGE WELL. PT HAS SCHEDULED FOLLOW UP ON 04/02/19 AT 11AM.
--- NOTE | 2019-03-27 12:22 | NUR ---
dsicharge teaching provided to pt and . written prescriptions provided. understands plans for follow up.
--- NOTE | 2019-03-27 17:23 | MORECARE ---
CASE MANAGEMENT DISCHARGE SUMMARY PATIENT: KULWANT BONILLA UNIT: [id number] ADM DATE: 03/26/19 AGE: 68 : 48 SEX: F ROOM/BED: D.2308 AUTHOR: ISAK NEWBY PHYSICIAN: REFERRING PHYSICIAN: MIKO ESQUIVEL DATE OF SERVICE: 03/27/19 Discharge Plan Patient Name: KULWANT BONILLA [facility] [facility] 1950 Planned Disposition: Anticipated Discharge Date: Discharge Date: 03/27/2019 Expected LOS: Initial Reviewer: [email or web address] Initial Review Date: 03/27/2019 Generated: 03/27/19 6:23 pm Patient Name: KULWANT BONILLA Page [id number] at 1723 All edits/amendments must be made on the electronic document DICTATION DATE: 03/27/191722 ENDO TECH: SARI 03/27/191722 RPT#: [id number] DC DATE:03/27/19 STATUS: DIS IN [facility] [address] [place] [address] END OF REPORT
== END 2019-03-27 12:24 | disposition home or self-care (01) | DRG 983 ==
LOC: D.ICU 08:49 → D.OPS 08:49 → D.PAN 11:30 → D.OPS 11:30 → D.ICU 13:46 → D.OPS 15:24 → D.ICU 15:25
PROVIDERS: Anesthesiology; Internal Medicine Nephrology; ADMIT Family Medicine; ATTEND Podiatrist
PROC: 0QSN04Z Reposition Right Metatarsal with Internal Fixation Device, Open Approach (ICD-10-PCS; principal; 2019-03-26 11:30)
DX: G40.409 Other generalized epilepsy and epileptic syndromes, not intractable, without status epilepticus (principal); M20.11 Hallux valgus (acquired), right foot; J44.9 Chronic obstructive pulmonary disease, unspecified; K21.9 Gastro-esophageal reflux disease without esophagitis; E11.22 Type 2 diabetes mellitus with diabetic chronic kidney disease; I12.9 Hypertensive chronic kidney disease with stage 1 through stage 4 chronic kidney disease, or unspecified chronic kidney disease; N18.9 Chronic kidney disease, unspecified

== ENCOUNTER 2019-07-25 11:31 | Inpatient (IN) | payer MEDICARE, OTHER ==
[2019-07-25] VITALS (7 sets, daily range): BP systolic 104–169; BP diastolic 54–87; BMI 32.6
[~2019-07-25] VITALS: Ht 139.7 cm; Wt 65.1 kg
--- NOTE | ~2019-07-25 | HEMODYNAMI ---
PATIENT:KULWANT BONILLA MEDICAL RECORD: [id number] : 46 [id number] ADMISSION DATE: 07/26/19 Generatedon:07/27/201910:31 Patient name: KULWANT BONILLA Patient #: [id number] : 1950 Date of study: 07/27/2019 Page: Of Hemodynamic Procedure Report Patient Data Patient Demographics Procedure consent was obtained First Name: KULWANT Gender: Female Last Name: CHAD : 1950 Middle Initial: AMBREEN Age: 68 year(s) Patient #: [id number] Race: SSN: [id number] Additional ID: [id number] Contact details [address]: [address] [place] [address] State: [place] City: [place] Zip code: [address] Past Medical History Allergies Allergen Reaction Date Comments Reported Sulfa drugs 03/19/2017 Admission Admission Data Admission Date: 07/26/2019 Admission Time: 19:32 Arrival Date: 07/27/2019 Arrival Time: 0:00 Admit Source: Other Insurance Payor: Private Room #: D.[id number] health insurance, Medicare [facility] #: [id number] Height (in.): 55 BSA: 1.52 (m2) Height (cm.): 139.7 BMI: 33.31 (kg/m2) Weight (lbs.): 143.3 Weight (kg.): 65 Lab Results Lab Result Date: 07/27/2019 Lab Result Time: 0:00 Biochemistry Name Units Result Min Max BUN mg/dl 10 --(-*--)-- 7 18 Creatinine mg/dl 0.9 --(-*--)-- 0.6 1.3 CBC Name Units Result Min Max Hemoglobin g/dl 15 --(-*--)-- 13.5 17.5 Procedure Procedure Types Cath Procedure Diagnostic Procedure LHC LH w/Coronaries Sedation Charges Moderate Sedation up to 15 minutes Procedure Description Procedure Date Procedure Date: 07/27/2019 Procedure Start Time: 10:20 Procedure End Time: 10:29 Procedure Staff Name Function Renetta Crook RT Monitor Mario Pike MD Performing Physician Beth Montemayor RT Scrub Mary Jasmine RT Scrub Sherrill Anthony RN Nurse Procedure Data Cath Procedure Fluoroscopy Diagnostic fluoroscopy Total fluoroscopy Time: 1 time: 1 min min Diagnostic fluoroscopy Total fluoroscopy dose: 194 dose: 194 mGy mGy Contrast Material Contrast Material Type Amount (ml) Isovue 300 51 Entry Location Entry Primary Successful Side Size Upsize Upsize Entry Closure Succes sful Closure Location (Fr) 1 (Fr) 2 (Fr) Remarks Device Remarks Femoral Right 5 Fr Exoseal artery Estimated blood loss: 5 ml Diagnostic catheters Device Type Used For End Catheter Placement MULTIPACK Pigtail 5 Fr LV Angiography catheter MULTIPACK JL 4.0 5Fr Left Coronary catheter Angiography MULTIPACK 3DRC 5Fr Right Coronary catheter Angiography Procedure Complications No complications Procedure Medications Medication Administration Route Dosage 0.9% NaCl I.V. 100 ml/hr Oxygen etCO2 Nasal cannula 2 l/min Lidocaine 2% added to field 20 Heparin Flush Bag added to field 2 bags (1000units/500ml NS) Versed I.V. 1 mg Fentanyl I.V. 25 mcg Versed I.V. 1 mg Hemodynamics Rest BSA: 1.52 (m2) HGB: 15 (g/dl) O2 Consumption: Estimated: 152.91 (ml/min) O2 Cons umption indexed: Estimated:100.6 (ml/min/m) Heart Rate: 92 (bpm) Pressure Samples Time Site Value (mmHg) Purpose Heart Use Rate(bpm) 10:23 LV 113/9,10 Snapshot 94 Snapshots Pre Cath Intra NCS Post Cath Vital Signs Time Heart Resp SPO2 etCO2 NIBP (mmHg) Rhythm Pain Sedation Rate (ipm) (%) (mmHg) Status Level (bpm) 9:51:56 88 14 99 25.4 139/76(112) NSR 0 (11) 10(A) , No pain 9:56:04 92 17 98 29.2 141/84(123) NSR 0 (11) 10(A) , No pain 10:00:18 90 13 97 31.4 126/73(99) NSR 0 (11) 10(A) , No pain 10:04:26 91 13 97 32.9 128/72(99) NSR 0 (11) 10(A) , No pain 10:08:34 91 13 96 32.9 124/73(106) NSR 0 (11) 9(A) , No pain 10:12:42 91 13 96 32.2 125/71(98) NSR 0 (11) 9(A) , No pain 10:16:52 91 13 96 32.1 120/68(93) NSR 0 (11) 9(A) , No pain 10:20:57 94 16 96 30.7 130/74(97) NSR 0 (11) 9(A) , No pain 10:25:07 92 15 98 31.4 123/75(102) NSR 0 (11) 10(A) , No pain 10:29:15 93 14 96 32.2 120/70(97) NSR 0 (11) 10(A) , No pain Medications Time Medication Route Dose Verified Delivered Reason Notes Eff ectiveness by by 9:55:58 0.9% NaCl I.V. 100 Mario Sherrill used for ml/hr Shahzad Anthony maintenance team leader 9:56:04 Oxygen etCO2 2 Mario Sherrill used for Nasal l/min Shahzad Anthony procedure cannula RN 9:56:09 Lidocaine 2% added 20ml Mario Mario for local to vial Shahzad Pike MD anesthetic field 9:56:13 Heparin Flush added 2 Mario Mario used for Bag to bags Shahzad Pike MD procedure (1000units/500ml field NS) 9:56:19 Versed I.V. 1 mg Mario Sherrill for Shahzad Anthony sedation RN 9:56:23 Fentanyl I.V. 25 Mario Sherrill for mcg Shahzad Anthony sedation RN 10:03:14 Versed I.V. 1 mg Mario Sherrill for Shahzad Anthony sedation premium service representative Log Time Note 9:17:03 Admit Source: Other 9:17:09 Arrival Date: 07/27/2019 12:00:00 AM 9:17:31 Insurance Payor : Private health insurance, Medicare 9:17:43 Patient Height : 55 inches 9:17:50 Patient Weight : 143.3 lbs 9:18:58 Lab Result : Hemoglobin 15 g/dl 9:18:58 Lab Result : Creatinine 0.9 mg/dl 9:18:58 Lab Result : BUN 10 mg/dl 9:19:04 Diagnostic Cath Status : Urgent 9:29:46 Beth Montemayor RT(R) sent for patient. Start room use. 9:39:43 Procedure Status Urgent Heart Cath (IP). 9:39:53 Time tracking: Regular hours (M-F 7:00 - 5:00) 9:39:57 Plan of Care:Hemodynamics will remain stable., Cardiac rhythm will remain stable., Comfort level will be maintained., Respiratory function will remain adequate., Patient/ family verbilizes understanding of procedure., Procedure tolerated without complication., Recovers from procedure without complications.. 9:40:14 Patient received from Med II to CCL 2 Alert and oriented. Tansferred to table in Supine position. 9:40:17 Signed procedure consent form obtained from patient. 9:40:18 Warm blankets applied, and jamie hugger turned on for patient comfort. 9:40:19 ECG and BP/O2 sat monitors applied to patient. 9:40:19 Correct patient and procedure confirmed by team. 9:47:44 Risk of Mortality: 3.3 9:47:48 Risk of blood transfusion: 2.4 9:48:04 Risk of ANNA: 6.8 9:49:09 Maximum allowable contrast dose (3.7 X eGFR X 0.75)183 ml. 9:49:19 2) 60-89 Mildly reduced kidney function, and other findings (as for stage 1) point to kidney disease. 9:50:25 IV started by Sherrill Anthony RN inleft antecubital with a 22 gauge IV catheter with 0.9% NaCl at KVO. 9:50:30 Lab results completed and on chart. 9:50:56 Vital chart was started 9:51:30 Baseline sample Acquired. 9:51:34 Rhythm: sinus tachycardia 9:51:35 Full Disclosure recording started 9:51:43 H&P Date Dictated: 07/27/2019 New H&P dictated by physician.. 9:51:45 Pre-procedure instructions explained to patient. 9:51:46 Pre-op teaching completed and patient verbalized understanding. 9:51:48 Family in patients room. 9:51:49 Patient NPO since Midnight. 9:51:51 Is the patient allergic to Iodine/contrast media? No. 9:51:52 Was the patient premedicated? Yes 9:51:59 Is patient on blood thinner?Yes 9:52:04 ACC The patient was administered the following blood thiners within the last 24 hours: ACCPlavix, Eliquis 9:52:10 Patient diabetic? Yes. 9:52:11 If diabetic: On Metformin? Yes 9:52:14 If on Metformin: Last Dose? 07/27/2019 9:52:19 Previous problem with sedation/anesthesia? No ? 9:52:21 Snore? No 9:52:22 Sleep apnea? No 9:52:23 Deviated septum? No 9:52:30 Opens mouth fully? Yes 9:52:31 Sticks out tongue? Yes 9:52:39 Airway obstruction? Yes copd, asthma 9:52:42 Dentures? No ? 9:52:48 Pre procedure: right dorsailis pedis pulse 2+ Normal; easily identifiable; not easily obliterated 9:52:50 Pre procedure: left dorsailis pedis pulse 2+ Normal; easily identifiable; not easily obliterated 9:52:52 Patient pain scale 0/10 ?. 9:52:59 Stress Test: no; N/A ? 9:53:05 Right groin area was prepped with chlora-prep and draped in sterile fashion 9:53:06 Alarms reviewed by RLoi N. 9:53:07 Sharps counted by scrub and verified by R.N. 9:53:08 Physician arrived 9:53:09 Final Timeout: patient, procedure, and site verified with staff and physician. All members of the team are in agreement. 9:53:09 --------ALL STOP TIME OUT------ 9:53:11 Right groin site verified by team. 9:53:15 Fire Safety Assessment: A--An alcohol-based skin anteseptic being used preoperatively., C--Open oxygen or nitrous oxide is being used., D--An ESU, laser, or fiber-optic light is being used. 9:53:19 Physical assessment completed. ASA score P 2 - A patient with mild systemic disease as per Mario Pike MD. 9:53:24 Sedation plan: IV Moderate Sedation Medication:Versed, Fentanyl 9:54:14 Use device set Femoral Dx 9:54:15 Bag Decanter (2001S) opened to sterile field. 9:54:15 ACIST Syringe (19662) opened to sterile field. 9:54:16 Medline Cath Pack ([id number]) opened to sterile field. 9:54:17 ACIST Hand Control (23075) opened to sterile field. 9:54:18 DIAGNOSTIC Multipack 5Fr catheter set ([id number]) opened to sterile field. 9:54:18 ACIST Manifold (01426) opened to sterile field. 9:54:19 Tegaderm 4 x 4 (1626W) opened to sterile field. 9:54:21 EMERALD Guide Wire (414-225) opened to sterile field. 9:54:21 SHEATH 5FR Harborton (GCX769) opened to sterile field. 9:55:58 0.9% NaCl 100 ml/hr I.V. was administered by Sherrill Anthony RN; used for procedure; Verbal order read back and verified. 9:56:04 Oxygen 2 l/min etCO2 Nasal cannula was administered by Sherrill Anthony RN; used for procedure; Verbal order read back and verified. 9:56:09 Lidocaine 2% 20ml vial added to field was administered by Mario Pike MD; for local anesthetic; Verbal order read back and verified. 9:56:13 Heparin Flush Bag (1000units/500ml NS) 2 bags added to field was administered by Mario Pike MD; used for procedure; Verbal order read back and verified. 9:56:19 Versed 1 mg I.V. was administered by Sherrill Anthony RN; for sedation; Verbal order read back and verified. 9:56:23 Fentanyl 25 mcg I.V. was administered by Sherrill Anthony RN; for sedation; Verbal order read back and verified. 10:03:14 Versed 1 mg I.V. was administered by Sherrill Anthony RN; for sedation; Verbal order read back and verified. 10:20:24 Procedure started. 10:20:29 Local anesthetic to right femoral artery with Lidocaine 2% by Mario Pike MD.INITIAL ACCESS ONLY 10:20:39 A 5 Fr sheath was inserted into the Right Femoral artery 10:20:50 Zero performed for pressure channel P1 10:21:03 A MULTIPACK Pigtail 5 Fr catheter was advanced over the wire and used for LV Angiography. 10:23:12 LV hemodynamics recorded. 10:23:13 LV gram done using GOLDSMITH 10:23:16 Injector settings: Ml/sec: 5, Volume: 15, 10:23:22 EF : 50 % 10:23:29 Catheter removed. 10:23:36 A MULTIPACK JL 4.0 5Fr catheter was advanced over the wire and used for Left Coronary Angiography. 10:24:10 LCA angiography performed. 10:24:13 Injector settings: Ml/sec: 3, Volume: 6, 10:24:43 Catheter removed. 10:24:50 A MULTIPACK 3DRC 5Fr catheter was advanced over the wire and used for Right Coronary Angiography. 10:25:31 RCA angiography performed. 10:25:35 Injector settings: Ml/sec: 3, Volume: 6, 10:25:54 ACCDominant side:Right 10:25:54 Catheter removed. 10:25:56 EXOSEAL 5Fr (EX500) opened to sterile field. 10:26:11 Sheath removed intact; hemostasis achieved with Exoseal to the Right Femoral artery. 10:26:13 Procedure ended.(Physican Out) 10:27:04 Fluoroscopy time 01.00 minutes. 10:27:08 Fluoroscopy dose: 194 mGy 10:27:08 Flurop Dose total: 194 10:27:14 Dose Area Product 19174 mGy/cm. 10:27:18 Contrast amount:Isovue 300 51ml. 10:27:25 Maximum allowable dose exceeded? No. 10:27:27 Sharps counted by scrub and verified by R.N. 10:27:30 Insertion/operative site no bleeding no hematoma. 10:27:33 Post-op/insertion site Right Femoral artery dressed using a 4 x 4 and Tegaderm. 10:27:34 Post Procedure Pulses reassessed and unchanged 10:27:37 Post procedure rhythm: unchanged. 10:27:41 Estimated blood loss: 5 ml 10:27:43 Post procedure instruction explained to patient.Patient verbalizes understanding. 10:28:10 Patient needs reinforcement of post procedure teaching. 10:28:31 Procedure type changed to Cath procedure, Diagnostic procedure, LHC, LHC w/Coronaries, Sedation Charges, Moderate Sedation up to 15 minutes 10:28:32 Procedure and supply charges have been captured, reviewed, submitted and are correct. 10:28:59 Procedure Complication : No complications 10:29:01 Vital chart was stopped 10:29:04 [facility] Findings: mild to moderate CAD (<70%) 10:29:05 See physician's report for complete and final results. 10:29:05 Operative report dictated upon procedure completion. 10:29:09 Report given to [facility]. 10:29:12 Patient transfered to [facility] with Stretcher. 10:29:14 Full Disclosure recording stopped 10:29:14 Procedure ended. 10:29:30 End room use (Document Last) Device Usage Item Name Manufacture Quantity Catalog Hospital Part Current Minimal L ot# / Number Charge Number Stock Stock Serial# Code ACIST Acist 1 12056 546143 906100 [id number] 20 Syringe Medical (62929) Systems Inc Bag Microtek 1 2001S 732196 94664 587638 5 Decanter Medical Inc. () Medline Medline 1 [id number] 460525 36680 031511 5 Cath Pack ([id number]) ACIST Hand Acist 1 27792 725656 940533 106507 5 Control Medical (73607) Systems Inc ACIST Acist 1 71141 447100 196091 546894 5 Manifold Medical (32524) Systems Inc DIAGNOSTIC Cardinal 1 [id number] 114322 62773 211461 30 Multipack Health 5Fr catheter set (LZ5037) Tegaderm 4 3M 1 1626W 754533 692894 858165 5 x 4 (1626W) SHEATH 5FR Terumo 1 ZJT908 885712 642782 023199 5 [place] (KBB141) EMERALD Cardinal 1 502-455 046283 128859 456824 5 Guide Wire Health (502-455) MULTIPACK Cardinal 1 387922 5 Pigtail 5 Health Fr catheter MULTIPACK Cardinal 1 298249 5 JL 4.0 5Fr Health catheter MULTIPACK Cardinal 1 922972 5 3DRC 5Fr Health catheter EXOSEAL 5Fr Cardinal 1 EX500 739025 378698 400196 10 (EX500) Health Signature Audit [place] Stage Time Signature Unsigned Intra-Procedure 07/27/2019 Renetta Crook 10:30:54 AM RT(R) Intra-Procedure 07/27/2019 Sherrill Anthony 10:31:13 AM RN Intra-Procedure 07/27/2019 Mario Pike 10:31:31 AM MD Signatures Monitor : Renetta Crook RT Signature : Date : Time : Performing Physician : Signature : Mario Pike MD Date : Time : Nurse : Sherrill Anthony RN Signature : Date : Time : [address] [address] [place] [address]
[~2019-07-25 11:31] MED LIST changes: -LANTUS INSULIN10 ML SC; +LANTUS SOL100 UNIT/1 SC; +LOPRESSOR25 MG PO
[2019-07-25 11:43] LABS: BASOPHILS 0.3 % (0-2); EOSINOPHILS 1.5 % (0-7); HEMATOCRIT 45.3 % (36.0-48.0); IMMATURE GRANULOCYTES 0.1 % (0-5); LYMPHOCYTES 36.1 % (15-50); MCH 31.1 pg (26.0-34.0); MCHC 33.1 g/dL (31.0-37.0); MCV 93.8 fL (80.0-100.0); MEAN PLATELET VOLUME 8.6 fL (7.4-10.4); MONOCYTES 8.4 % (2-11); NEUTROPHILS 53.6 % (40-80); PLATELET COUNT 270 10x3/uL (130-400); RBC 4.83 10x6/uL (4.00-5.40); RDW 13.1 % (11.5-14.5); WBC 7.9 10x3/uL (4.8-10.8)
[2019-07-25 11:57] LABS: APTT 28.4 SECONDS (22.8-39.4); INR 1.13 (0.85-1.17)
[2019-07-25 11:58] LABS: CALC OSMOLALITY 277 mosm/kg (275-300); CALCIUM 9.1 mg/dL (8.5-10.1); CHLORIDE - SERUM 105 mmol/L (98-107); CREATININE - SERUM 0.9 mg/dL (0.6-1.3); POTASSIUM - SERUM 5.5 mmol/L (3.5-5.1); SODIUM 141 mmol/L (136-145); UREA NITROGEN 10 mg/dL (7-18); eGFR NON AFRICAN AMERICAN 66 mL/min (90-120)
[2019-07-25 11:59] LABS: GLUCOSE 59 mg/dL (74-106)
[2019-07-25 12:14] LABS: ALBUMIN 3.8 g/dL (3.4-5.0); ALKALINE PHOSPHATASE 215 U/L (46-116); ALT (SGPT) 35 U/L (10-68); AMYLASE - SERUM 50 U/L (25-115); BILIRUBIN - TOTAL 0.21 mg/dL (0.2-1.3); CKMB 0.8 U/L (0.0-3.6); CREATINE KINASE 75 UL (21-215); MAGNESIUM - SERUM 1.6 mg/dL (1.8-2.4); PROTEIN - SERUM 8.2 g/dL (6.4-8.2)
[2019-07-25 12:16] LABS: TROPONIN-I < 0.017 ng/mL (0.000-0.060)
--- NOTE | 2019-07-25 12:56 | NUR ---
UP TO BEDSIDE COMMODE , VOIDED 800CC. BACK TO BED WITHOUT INCODENT.
[2019-07-25 13:11] LABS: UDS - AMPHET NEGATIVE QUAL (NEGATIVE); UDS - BARB NEGATIVE QUAL (NEGATIVE); UDS - BENZO NEGATIVE QUAL (NEGATIVE); UDS - COCAINE NEGATIVE QUAL (NEGATIVE); UDS - OPIATE NEGATIVE QUAL (NEGATIVE); UDS - PCP NEGATIVE QUAL (NEGATIVE); UDS - THC NEGATIVE QUAL (NEGATIVE)
[2019-07-25 13:14] LABS: APPEARANCE CLEAR (CLEAR); COLOR STRAW (YELLOW); GLUCOSE 50 mg/dL (NEGATIVE); NITRITE NEGATIVE (NEGATIVE); PROTEIN NEGATIVE (NEGATIVE)
[2019-07-25 13:15] LABS: BILIRUBIN NEGATIVE (NEGATIVE); KETONE NEGATIVE (NEGATIVE); UROBILINOGEN NORMAL (NORMAL)
--- NOTE | 2019-07-25 15:04 | NUR ---
RECEIVED PT TO ROOM 2113 FROM ER VIA W/C PT AAOX4 RESP UNLABORED SKIN W/D COLOR WNL SALINE LOCK INTACT TO LT HAND WITH 20 GA IV CATH SITE FREE OF REDNESS OR EDEMA TLEMETRY APPLIED SR RATE 91 WILL CONTINUE TO MONITOR
[2019-07-25 17:44] LABS: CKMB 0.8 U/L (0.0-3.6); CREATINE KINASE 55 UL (21-215)
[2019-07-25 17:45] LABS: TROPONIN-I < 0.017 ng/mL (0.000-0.060)
--- NOTE | 2019-07-25 19:11 | NUR ---
RECEIVED UP IN BED WITH EYES OPEN. ALERT AND ORIENTEED WITH C/O BEING COLD. WARM BLANKET GIVEN WITH STATED RELIEF. IV TO LEFT HAND SL.. TELEMETRY IN PLACE. DENIES ANY CHEST PAIN AT THIS TIME.
[2019-07-25] MEDS ORDERED: NEURONTIN 300300 MG PO ×2 (20:34→20:35)
[2019-07-25] MEDS ORDERED: KEPPRA500 MG PO (20:36)
[2019-07-26 03:02] LABS: CKMB 0.4 U/L (0.0-3.6); CREATINE KINASE 41 UL (21-215); TROPONIN-I < 0.017 ng/mL (0.000-0.060)
--- NOTE | 2019-07-26 07:15 | NUR ---
RECEIVED PT IN BED AAOX4 RESP UNLABORED SKIN W/D COLOR WNL DENIES ANY NEEDS AT THIS TIME NAD
[2019-07-26 09:14] VITALS: BP 110/63
[2019-07-26 11:06] VITALS: Ht 139.7 cm; Wt 65.1 kg
[2019-07-26 12:47] VITALS: BP 145/71
[2019-07-26] MEDS ORDERED: ATIVAN0.5 MG PO (16:24)
[2019-07-26] MEDS ORDERED: ZOLOFT50 MG PO (16:24)
[2019-07-26 18:21] VITALS: BP 117/67
--- NOTE | 2019-07-26 19:49 | NUR ---
RECIEVED BEDSIDE SHIFT REPORT. UP IN BED WITH EYES OPEN AND TV ON. ALERT AND ORIENTED X4. SIGNED CONSENTS FOR PROCEDURE TOMORROW WITH NO QUESTIONS. IV TO LEFT HANDSL. UP AD TRANG TO B/R. DENIES ANY NEEDS.
--- NOTE | 2019-07-26 19:54 | NUR ---
IV INFILTRATED WHEN CHECKED FOR PATENCY. WILL REATTEMPT TO RESTART.
[2019-07-26 20:00] VITALS: BP 112/72
[2019-07-27] VITALS: BP 108/60
[2019-07-27 04:00] VITALS: BP 121/70
--- NOTE | 2019-07-27 05:54 | NUR ---
UNABLE TO RESTART IV WITH ATTEMPTS X2. ANOTHER NURSE ATTEMPTED X2. WILL REPORT TO [facility].
[2019-07-27 07:38] VITALS: BP 101/49
--- NOTE | 2019-07-27 08:55 | HP ---
PATIENT: KULWANT BONILLA MEDICAL RECORD: [id number] ACCOUNT: [id number] LOCATION:[address] : [birth year] ADMISSION DATE: 07/26/19 PCP: SAMEERA JOHNSON MD HISTORY AND PHYSICAL EXAMINATION DATE OF ADMISSION: 07/25/2019 CHIEF COMPLAINT: Chest pain. HISTORY OF PRESENT ILLNESS: This is a 68-year-old female with a history of coronary artery disease, diabetes, anxiety, epilepsy as well as pseudoseizures. She and her were coming home from [place] when she started complaining that she did not feel good. She had chest pain and then she went unresponsive. She was brought in to the ER and she was not responding to anybody. Her eyes were open and eyes were deviated left and upward. The ER MD stated that she did not respond to sternal rub at all; however, she was able to divert her hand away from her face on arm drop. She then became more responsive and started talking and moving all extremities. She is admitted for her chest pain. The patient sees Dr. Yuan for her epilepsy. She has been admitted several times to [facility] with this similar seizure-type activity, which usually includes general tonic-clonic movement or at least shaking of her head and her eyes deviate leftward and upward. She was transferred within the last couple of months to [facility] in [place] where she had continuous EEG and video monitoring. She had one episode of seizure-like activity where she did the same thing with her eyes deviated leftward and upward this did not correspond to any EEG abnormality. This went on for about 45 minutes before it stopped on its own. She has been evaluated by psych there at [facility] and now followed by a counselor [facility]. PAST MEDICAL HISTORY: Again, diabetes; anxiety; asthma; hyperlipidemia; hypertension; coronary artery disease; glaucoma; epilepsy; pseudoseizure; recurrent PE, on Coumadin; spondylolisthesis; depression. PAST SURGICAL HISTORY: Cataract repair, hysterectomy, cholecystectomy, coronary stent in June [address]cclellan, right total knee arthroplasty, bunionectomy. She has had lumbar spine surgery times 2. ALLERGIES: ALPRAZOLAM, BACTRIM, AND SULFA. HOME MEDICATIONS: Include sertraline 50 mg once a day; omeprazole 20 mg once a day; tramadol p.r.n. pain; Singulair 10 mg once a day; Ativan 0.5 b.i.d. p.r.n. anxiety; Dilantin 100 mg 2 pills twice a day; metoprolol 25 mg twice a day; levothyroxine 75 mcg once a day; albuterol nebulizer p.r.n.; albuterol inhaler p.r.n.; Lantus 20 units daily; Pepcid, once or twice a day; gabapentin 300 mg 1 in the morning, 1 at noon, and 2 at bedtime; Keppra 500 mg 2 pills twice a day; zonisamide 200 mg at bedtime; Eliquis 5 mg twice a day; metformin 1000 mg twice a day; lisinopril 20 mg once a day; lovastatin 20 mg once a day; and budesonide for her asthma daily. She takes iron 325 twice a day and latanoprost 0.005% drops 1 drop both eyes at bedtime. HABITS: Never smoked. No alcohol or drugs. SOCIAL HISTORY: She is retired. She is , lives with her who has dementia. She has lots of stress at home with his son and an adopted son. HISTORY AND PHYSICAL [id number] KULWANT BONILLA FAMILY HISTORY: Noncontributory. REVIEW OF SYSTEMS: GENERAL: No major weight changes. HEENT: No particular sinus or allergy problems. RESPIRATORY: She does have a history of asthma. CARDIAC: She has coronary artery disease with stents by Dr. Mcclellan. GASTROINTESTINAL: She has had reflux followed by Dr. Pagan. GENITOURINARY: No significant problems there. MUSCULOSKELETAL: She has had 2 back surgeries and knee replaced. She had a recurrent PE postoperatively twice. NEUROLOGICAL: She has epilepsy, followed by Dr. Yuan. She also has pseudoseizures. PSYCHIATRIC: Has depression and melancholia. PHYSICAL EXAMINATION: VITAL SIGNS: Temperature 97.7, pulse 98, respirations 12, blood pressure 171/80, O2 sat was 93%. GENERAL: Generally, when I saw her she is awake and alert, was taking a nap, but easily awakened. She seems at her normal baseline self. She states she just does not feel well. SKIN: No rash. HEENT: Grossly within normal limits. NECK: Supple. No JVD or bruit. HEART: Regular rate and rhythm without murmur. LUNGS: Clear. ABDOMEN: Soft. EXTREMITIES: No edema. NEUROLOGIC: Cranial nerves are all intact. No focal motor or sensory is found. LABORATORY DATA: Basic metabolic panel is okay except potassium a little elevated at 5.5, glucose was 59. Liver enzymes were normal except alkaline phosphatase a little high at 215. Troponin was less than 0.017. INR was normal. CBC normal. Urine drug screen was negative for everything including benzodiazepines. Urinalysis: Glucose is a little low at 50, otherwise is unremarkable. DIAGNOSTIC DATA: Chest x-ray showed no active disease and a CT of her head showed nothing acute. There is chronic small-vessel ischemic changes and an old right parietal lobe infarct, which has been noted on multiple CTs she has had over the last year. ASSESSMENT: 1. Chest pain in a patient with known coronary disease. 2. Diabetes. 3. Hypertension. 4. Epilepsy. 5. History of pseudoseizures. PLAN: I will admit. Serial cardiac enzymes, consult cardiology. Other tests and procedures as warranted. TRANSINT:[id number] Voice Confirmation ID: [id number] DOCUMENT ID: [id number] HISTORY AND PHYSICAL [id number] KULWANT BONILLA WILLIAM MD at 0855 CC: [id number] DICTATION DATE: 07/26/19 1443 KENNEL ASSISTANT: 07/26/19 1623 ADM IN [place] [id number] [place] [address]
--- NOTE | 2019-07-27 09:29 | CN ---
PATIENT NAME:KULWANT GREER MEDICAL RECORD: [id number] : 46 LOCATION:D. D.2114 ADMIT DATE: 07/26/19 ACCOUNT: [id number] CONSULTING PHYSICIAN: CHICHI STEWART MD REFERRING PHYSICIAN: SAMEERA JOHNSON MD DATE OF CONSULTATION: 07/26/2019 CARDIOLOGY CONSULTATION DIAGNOSES: 1. Unstable angina. 2. Syncope. 3. Insulin-dependent diabetes. 4. Hypertension. 5. Hyperlipidemia. 6. Coronary artery disease. 7. Previous cardiac stenting. 8. Smoking. 9. COPD. HISTORY OF PRESENT ILLNESS: Mrs. Greer had an episode of chest pain yesterday while she was being driven to [facility] by her and she became unresponsive in the car. The unresponsiveness lasted a few minutes. She continued to have the chest pain. She has been having chest pain for over a month now. She does have a history of cardiac stenting approximately 5 years ago. She had an episode 2 weeks ago where she became unresponsive at home with chest pain as well and stopped breathing, her son was there, he called 911. He started doing CPR. CPR was continued by EMS. She was brought to [facility]. She did not undergo cardiac catheterization. I told her that they thought it was secondary to a seizure that she had at that time. She has been continued to have the chest pain. Her troponin is negative. PHYSICAL EXAMINATION: CONSTITUTIONAL/GENERAL APPEARANCE: Well nourished, well developed, appears stated age. EYES: Lids and conjunctivae noninjected. No discharge. No pallor. ENT: Lips within normal limit. No cyanosis. No pallor. NECK: Carotid arteries, bilateral normal upstroke. No bruits. No thrills. No jugular venous pressure or distention. CERVICAL LYMPH NODES: Nontender. Nonenlarged. THYROID: Not enlarged. No nodules. CARDIOVASCULAR: Precordial exam, nondisplaced. No heaves or pericardial thrills. Rate and rhythm, regular. Heart sounds, normal S1, normal S2. No S3, no gallop, no rub. Systolic murmur, not heard. Diastolic murmur, not heard. RESPIRATORY: Respiratory effort, unlabored. Normal curvature. No thoracic deformity. No chest wall tenderness. Percussion, resonant. Auscultation, clear. No wheezes, no rales, no rhonchi. ABDOMEN: Soft, nondistended, nontender. No abdominal pain, no vomiting and normal appetite. MUSCULOSKELETAL: No joint tenderness, normal gait, normal tone. SKIN: Warm and dry. OVERALL IMPRESSION: Unstable angina, most likely the episode she had was a cardiac arrest with continued chest pain and a past history of coronary artery disease with multiple cardiac risk factors. This is cardiac until proven CONSULT REPORT [id number] KULWANT GREER otherwise, we will proceed with coronary angiography in the a.m. TRANSINT:[id number] Voice Confirmation ID: [id number] DOCUMENT ID: [id number] CHICHI STEWART MD at 0929 CC: [id number] DICTATION DATE: 07/26/19 1108 FEED MIXER HELPER: 07/26/19 1142 ADM IN [facility] [address] [place] [address]
--- NOTE | 2019-07-27 09:33 | NUR ---
LEAVING FOR COMMERCIAL STRIPPER BY BED. WILL START IV IN COMMERCIAL STRIPPER PER MAXI TROTTER. WILL CONT. PLAN OF CARE.
--- NOTE | 2019-07-27 10:51 | NUR ---
BACK FROM PHOTOSTATIC COPY MAKER. VS WNL. RIGHT GROIN STABLE WITHOUT BLEEDING OR HEMATOMA NOTED. WILL MONITOR.
[2019-07-27 11:24] VITALS: BP 128/76
--- NOTE | 2019-07-27 12:24 | NUR ---
BED REST UP. GROIN STABLE.
--- NOTE | 2019-07-27 12:33 | NUR ---
DR. OVERTON NURSE NOTIFIED THAT IT WAS OK TO DC PER DR. STEWART.
--- NOTE | 2019-07-27 14:21 | MORECARE ---
CASE MANAGEMENT DISCHARGE SUMMARY PATIENT: IRISH BONILLA UNIT: [id number] ADM DATE: 07/26/19 AGE: 68 : 48 SEX: F ROOM/BED: D.4734 AUTHOR: KEYONNA,DOC PHYSICIAN: REFERRING PHYSICIAN: SAMEERA JOHNSON MD DATE OF SERVICE: 07/27/19 Discharge Plan Patient Name: IRISH BONILLA Facility: [facility]:[place] : 1950 Planned Disposition: Home Anticipated Discharge Date: 07/27/19 Discharge Date: Expected LOS: 1 Initial Reviewer: [email or web address] Initial Review Date: 07/27/2019 Generated: 07/27/19 3:20 pm Comments DCP- Discharge Planning Updated by [email or web address]: Phan Cohen on 07/27/19 1:[address] Patient Name: IRISH BONILLA Admission Status: ER Accout number: [id number] Admission Date: 07-26-2019 : 1950 Admission Diagnosis: Attending: SAMEERA JOHNSON Current LOS: 1 Anticipated DC Date: 07-27-2019 Planned Disposition: Home Primary Insurance: MEDICARE A & B Discharge Planning Comments: CM MET WITH PT IN ROOM TO DISCUSS DISCHARGE PLANNING AND NEEDS. IRISH BONILLA provided verbal consent to discuss current and ongoing needs with/in the presence of: SPOUSE, SAMEERA. PT REPORTS LIVING AT HOME INDEPENDENTLY WITH HER SPOUSE. PT HAS NEBULIZER, OXYGEN FOR NIGHT USE AND WALKER FROM [facility] [place]. PT HAS NO OUTSIDE SERVICES ASSISTING IN THE HOME. CM DISCUSSED AVAILABILITY OF HOME HEALTH, REHAB SERVICES AND MEDICAL EQUIPMENT. PT DENIES DISCHARGE NEEDS, REPORTS HER SPOUSE WILL PICK HER UP FOR DISCHARGE HOME TODAY. IMPORT CUSTOMS CLEARING AGENT NURSE NOTIFIED. Apprentice Electrician: Phan Cohen DCPIA - Discharge Planning Initial Assessment Updated by [email or web address]: Phan Cohen on 07/27/19 2:06 pm * Is the patient Alert and Oriented? Yes * How many steps to enter\exit or inside your home? RAMP * PCP DR. JOHNSON * Pharmacy [facility] [address] * Preadmission Environment Home with Family * ADLs Independent * Equipment Nebulizer Oxygen Walker * Other Equipment HOME OXYGEN AT NIGHT ONLY - [facility] [place] IS PROVIDER * List name and contact numbers for known caregivers / representatives who currently or will assist patient after discharge: SAMEERA BONILLA, SPOUSE, * Verbal permission to speak to the caregivers and representatives has been obtained from the patient. Yes * Community resources currently utilized None * Please name any agencies selected above. NONE * Additional services required to return to the preadmission environment? No * Can the patient safely return to the preadmission environment? Yes * Has this patient been hospitalized within the prior 30 days at any hospital? No Coverage Notice Reviewer: [id number] Shaheen Torres Notice Issued Date-Time: 07/25/2019 14:10 Notice Type: Medicare Outpatient Observation Notice Notice Delivered To: Patient Relationship to Patient: Self Systems Software Engineer Name: Irish Bonilla Delivery Method: HAND - Hand Delivered Geno Days: Prior Verbal Notification: Recipient Understood Notice: Yes Recipient Signature: Yes Med Rec Note Co-signed by Attending: Coverage Notice Comment: Patient Name: IRISH BONILLA Page [phone] at 1421 All edits/amendments must be made on the electronic document DICTATION DATE: 07/27/191419 LIQUID FLAVOR COMPOUNDER: SARI 07/27/19 142 RPT#: [id number] DC DATE: STATUS: ADM IN [facility] [address] [place] [address] END OF REPORT
--- NOTE | 2019-07-27 14:29 | NUR ---
IV AND TELEMTRY DCD. DC PLANS GIVEN. UNDERSTANDING VOICED. ESCORTED TO CAR BY W/C.
--- NOTE | 2019-08-03 17:02 | OP ---
PATIENT NAME: KULWANT BONILLA MEDICAL RECORD: [id number] :46 LOCATION:D.M2 D.2114 ADMISSION DATE:07/26/19 SURGEON: CHICHI STEWART MD DATE OF OPERATION: 07/27/2019 DATE OF SERVICE: 07/27/2019 PROCEDURES: 1. Left heart catheterization. 2. Selective coronary angiography. 3. Left ventriculogram. INDICATION: Angina and coronary artery disease. PROCEDURE PERFORMED: After informed consent was obtained and after a detailed description of risks, benefits as well as alternative therapies, the patient elected to proceed with angiogram and heart catheterization. The right femoral area was prepped and draped in normal sterile fashion. The right femoral artery was cannulated via modified Seldinger technique with placement of 5-Armenian sheath. All catheters exchanged through this sheath. FINDINGS: Left ventriculogram was performed in standard 30-degree GOLDSMITH view, reveals good cardiac wall motion, ejection fraction estimated 60%. SELECTIVE CORONARY ANGIOGRAPHY: 1. Left main showed no significant angiographic disease. 2. Left anterior descending has mild irregularities, but no flow-limiting stenosis. 3. The left circumflex has mild irregularities, but no flow-limiting stenosis. 4. The right coronary has previously placed stent, this is widely patent with no significant restenosis. No disease elsewise of the RCA or its branches. OVERALL IMPRESSION: Wide patency of the previously placed stent in the right coronary artery, no disease elsewise. Chest pain is noncardiac in etiology. No further cardiac workup needs to be ascertained. TRANSINT:[id number] Voice Confirmation ID: [id number] DOCUMENT ID: [id number] CHICHI STEWART MD at 1702 CC: SAMEERA JOHNSON MD [id number] DICTATION DATE: 07/27/19 1030 TECHNOLOGY PROJECT MANAGER: 07/27/19 1043 DIS IN 07/27/19 [facility] [address] [place] [id number]
--- NOTE | 2019-08-03 17:02 | EC ---
PATIENT:KULWANT BONILLA DATE OF SERVICE: 07/26/19 SEX: F MEDICAL RECORD: [id number] DATE OF : [birth year] LOCATION:D.M2 D.211 AGE OF PATIENT: 68 ADMISSION DATE: 07/26/19 REFERRING PHYSICIAN: INTERPRETING PHYSICIAN: CHICHI PIKE MD ECHOCARDIOGRAM REPORT ECHO CHARGES 4 ECHO COMPLETE Date: 07/26/19 CLINICAL DIAGNOSIS: UNSTABLE ANGINA ECHOCARDIOGRAPHIC MEASUREMENTS (adult normal given) AC root (d.<3.7cm) 2.7 cm LV Septum d (<1.2 cm> 1.3 cm Valve Excursion 1.3 cm LV Septum (systole) 1.8 cm Left Atria (s.<4.0cm> 3.2 cm LVPW d(<1.2cm) 0.9 cm RV (d.<2.3cm) 2.1 cm LVPW (sytole) 1.7 cm LV diastole(<5.6CM) 4.5 cm MV E-F(>70mm/sec) cm LV systole 2.1 cm LVOT Diameter 1.8 cm MV exc.(>10mm) cm Est.ejection fraction (50-75%) % DOPPLER: LVIT cm/sec A 86.0 cm/sec E 59.0 cm/sec LA cm/sec RVSP 16.2 mmHg LVOT 85.0 cm/sec AOP1/2T m/s Asc. Ao 121 cm/sec RVOT 60.0 cm/sec RA cm/sec PA 72.0 cm/sec AV Gradient Peak 5.8 mmHg AV Mean 2.8 mmHg AV Area 1.5 cm MV Gradient Peak 3.9 mmHg MV Mean 1.2 mmHg MV Area cm COMMENTS: Reading Coach: 1 REBECCA SHAHOE Hydraulic Controls Technician: 1 Dr. Pike TAPE# PACS Pericardial Effusion N DATE OF SERVICE: PROCEDURE: Echocardiogram. FINDINGS: 1. Left ventricular chamber size is within normal limits. Left ventricular systolic function is normal at 55%. 2. Left atrium, right atrium, and right ventricular chamber sizes are within normal limits. 3. Valvular structures have normal structure and motion. ECHOCARDIOGRAM REPORT [id number] KULWANT BONILLA 4. Doppler interrogation reveals no significant valvular insufficiency or stenosis. 5. No evidence of pericardial effusion or left ventricular thrombus. TRANSINT:[id number] Voice Confirmation ID: [id number] DOCUMENT ID: [id number] CHICHI PIKE MD at 1702 CC: [id number] DICTATION DATE: 07/27/19 1057 SERVICE DELIVERY DIRECTOR: 07/27/19 1112 DIS IN 07/27/19 [place] [id number] [place] [id number]
== END 2019-07-27 14:29 | disposition home or self-care (01) | DRG 287 ==
LOC: D.ER 11:31 → D.M2 13:31 → OBSVTIME 13:31 → D.M2 07-26 19:32
PROVIDERS: Family Medicine; Internal Medicine Interventional Cardiology; ADMIT Family Medicine; ATTEND Family Medicine
PROC: B2151ZZ Fluoroscopy of Left Heart using Low Osmolar Contrast (ICD-10-PCS; 2019-07-27)
PROC: 4A023N7 Measurement of Cardiac Sampling and Pressure, Left Heart, Percutaneous Approach (ICD-10-PCS; 2019-07-27)
PROC: B2111ZZ Fluoroscopy of Multiple Coronary Arteries using Low Osmolar Contrast (ICD-10-PCS; principal; 2019-07-27 09:30)
DX: R07.89 Other chest pain (principal); I25.110 Atherosclerotic heart disease of native coronary artery with unstable angina pectoris; R55 Syncope and collapse; E11.9 Type 2 diabetes mellitus without complications; Z79.4 Long term (current) use of insulin; I10 Essential (primary) hypertension; E78.5 Hyperlipidemia, unspecified; J44.9 Chronic obstructive pulmonary disease, unspecified; R56.9 Unspecified convulsions

== ENCOUNTER 2019-07-31 08:00 | Outpatient (CLI) | payer MEDICARE, OTHER ==
[2019-07-26 11:06] VITALS: BMI 32.6
[~2019-07-31 08:00] MED LIST changes: +NEURONTIN 300300 MG PO; +ZOLOFT50 MG PO
== END 2019-07-31 23:59 | disposition home or self-care (01) ==
LOC: D.MAMMO 08:00
PROVIDERS: ATTEND Family Medicine
DX: R92.8 Other abnormal and inconclusive findings on diagnostic imaging of breast (principal)

== ENCOUNTER 2019-09-29 09:30 | Inpatient (IN) | payer MEDICARE, OTHER ==
[~2019-09-29] VITALS: Ht 149.9 cm; Wt 64.1 kg
[2019-09-29] MEDS ORDERED: ULTRAM50 MG PO (09:40)
[2019-09-29] MEDS ORDERED: PRINIVIL20 MG PO (09:40)
[2019-09-29] MEDS ORDERED: PULMICORT0.25 MG/1 INH (09:41)
[2019-09-29] MEDS ORDERED: BROVANA15 MCG/2 M INH (09:42)
[2019-09-29 10:29] LABS: APPEARANCE CLEAR (CLEAR); BILIRUBIN NEGATIVE (NEGATIVE); COLOR STRAW (YELLOW); GLUCOSE NEGATIVE (NEGATIVE); KETONE NEGATIVE (NEGATIVE); NITRITE NEGATIVE (NEGATIVE); PROTEIN NEGATIVE (NEGATIVE); UROBILINOGEN NORMAL (NORMAL)
--- NOTE | 2019-09-29 10:34 | NUR ---
PT IS A HIGH RISK PER ASSESSMENT. PT HAS AGREED TO GO TO ASSISTED FOR TX. REVIEWED TX PLAN AND ASSISTED. SITTER ORDERED PER DR. FERNANDEZ UNTIL PT IS ABLE TO TRANSFER TO ASSISTED. SAFETY PLAN INIATED AND RESOURCES GIVEN TO PT.
[2019-09-29 10:36] LABS: UDS - AMPHET NEGATIVE QUAL (NEGATIVE); UDS - BARB NEGATIVE QUAL (NEGATIVE); UDS - BENZO NEGATIVE QUAL (NEGATIVE); UDS - COCAINE NEGATIVE QUAL (NEGATIVE); UDS - OPIATE NEGATIVE QUAL (NEGATIVE); UDS - PCP NEGATIVE QUAL (NEGATIVE); UDS - THC NEGATIVE QUAL (NEGATIVE)
[2019-09-29 10:49] LABS: BASOPHILS 0.5 % (0-2); EOSINOPHILS 2.6 % (0-7); HEMOGLOBIN 13.4 g/dL (12-16); IMMATURE GRANULOCYTES 0.2 % (0-5); LYMPHOCYTES 41.5 % (15-50); MCH 30.5 pg (26.0-34.0); MCHC 32.7 g/dL (31.0-37.0); MCV 93.4 fL (80.0-100.0); MEAN PLATELET VOLUME 8.6 fL (7.4-10.4); MONOCYTES 10.9 % (2-11); NEUTROPHILS 44.3 % (40-80); PLATELET COUNT 290 10x3/uL (130-400); RBC 4.39 10x6/uL (4.00-5.40); RDW 13.1 % (11.5-14.5); WBC 5.7 10x3/uL (4.8-10.8)
--- NOTE | 2019-09-29 11:00 | NUR ---
PT IS AWAKE AND ALERT, CONVERSING PLEASANTLY WITH THE MENTAL HEALTH SITTER AT THE BEDSIDE, DENIES NEEDS AT THIS TIME, WILL MONITOR.
[2019-09-29 11:12] LABS: ALBUMIN 3.4 g/dL (3.4-5.0); BILIRUBIN - TOTAL 0.08 mg/dL (0.2-1.3); CALCIUM 8.2 mg/dL (8.5-10.1); CARBON DIOXIDE 23.2 mmol/L (21.0-32.0); MAGNESIUM - SERUM 1.4 mg/dL (1.8-2.4); PHENYTOIN (DILANTIN) 18.6 ug/mL (10.0-20.0); PROTEIN - SERUM 6.8 g/dL (6.4-8.2); T4 THYROXINE 4.9 ug/dL (4.7-13.3); THYROID STIMULATING HORMONE 1.07 uIU/mL (0.36-3.74)
[2019-09-29 11:22] LABS: POTASSIUM - SERUM 6.2 mmol/L (3.5-5.1)
--- NOTE | 2019-09-29 14:00 | NUR ---
ARRIVED TO HALF-WAY FROM EMERGENCY DEPT. VIA WHEELCHAIR. SHE IS ADMITTED FOR SUICIDAL THOUGHTS. SHE IS HER 'S IT PROJECT COORDINATOR AND HE IS DIAGNOSED WITH DEMENTIA FOR ABOUT 9 YEARS. CODE STATUS = FULL CODE CODE WORD IS Bill. WILL CONTINUE PLAN OF CARE AND MONITOR FOR SAFETY.
[2019-09-29 16:10] VITALS: BP 114/57
[2019-09-29 17:33] VITALS: BP 114/57; BMI 28.5
[2019-09-29 18:00] VITALS: BP 114/49
[2019-09-30 07:19] LABS: CHOL - HDL RATIO 2.1 ratio (2.3-4.1); LDL-HDL RATIO 0.9 ratio (1.5-3.5)
[2019-09-30 09:13] VITALS: BP 112/59
--- NOTE | 2019-09-30 10:00 | NUR ---
AWAKE AND ORIENTED TP PERSON, PLACE AND TIME. CALM AND COOPERATIVE WITH CARE AND ASSESSMENT. PRESCRIBED MEDICATIONS GIVEN ORDERED. COMPLIANT WITH MEDICATIONS. CONTINUE PLAN OF CARE.
--- NOTE | 2019-09-30 12:00 | PSY ---
PATIENT NAME:KULWANT BONILLA MEDICAL RECORD: [id number] : 46 LOCATION:[address] ADMISSION DATE: 09/29/19 ACCOUNT: [id number] PSYCHIATRIC EVALUATION DATE OF EVALUATION: 09/29/19 IDENTIFYING DATA: The patient is 68 years old and she is admitted to the hospital on a voluntary basis. CHIEF COMPLAINT: "I just can't take it anymore." HISTORY OF PRESENT ILLNESS: The patient was brought to the Emergency Room via ambulance after her family found out that she was planning to kill herself. She had been sleeping with a knife under her pillow for the past several days and seriously thinking about cutting her wrist or throat. She endorses numerous neurovegetative depressive symptoms along with serious psychosocial stressors. Specifically, her has Alzheimer disease and is becoming increasingly difficult to manage. She often yells at her and is verbally abusive. She also has a 43-year-old son who has been living with her for the past year and he is mentally ill, actively hallucinating, talking to himself, yelling back and forth with persons not present and she finds this very distressful. She says he is not addicted to drugs, although he has been in the past and she says that he refuses to get any kind of mental health treatment. In addition to this stress with her and her son, she has an atypical seizure disorder and in fact she was hospitalized 4 times at [facility] in August for epilepsy. She is on multiple anticonvulsants. She denies psychotic symptoms, thoughts of harming others and substance abuse issues. PAST MEDICAL HISTORY: Significant for epilepsy, COPD, chronic back pain, microcytic anemia, hypertension and diabetes. PAST PSYCHIATRIC HISTORY: Significant for depression, which she has been treated on an outpatient basis for some time. She has taken an overdose in the past in an attempt to kill herself, but that was some years ago and she promised her father that she would never do that again. He is now and the promise she made to her father is one of the factors keeping her from trying to kill herself currently. FAMILY HISTORY: Significant for hypertension, diabetes and coronary artery disease. ALLERGIES: SULFA. CURRENT MEDICATIONS: Include Neurontin, Keppra, Zoloft, Prilosec, Proventil, lovastatin, Dilantin, Ultram, Prinivil, Pulmicort, Singulair, insulin, Eliquis, Synthroid, Lopressor, and Glucophage. SOCIAL HISTORY: The patient is and has 2 adult sons. She has been to her for 52 years and as mentioned above, he has dementia and is requiring a lot of care and becoming irritable. The youngest son lives with her and is mentally ill, actively psychotic and behaving in a bizarre manner in the home while refusing to seek any kind of medical help. Her oldest son runs a successful small business, but she seldom sees him because he is busy with his work and his own family. She has no history of drug or alcohol abuse. She has an additional stress and that she is unable to drive because of her epilepsy. 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 MENTAL STATUS EXAMINATION: The patient is awake, alert and oriented to person, place, time and situation. Her mood is depressed. Her affect is generally appropriate. Thought processes are goal directed. Memory, concentration, and abstraction abilities are mildly impaired and she denies that she would seek to harm others as well as psychotic symptoms. She has thoughts of harming herself as described above. DIAGNOSTIC IMPRESSION: AXIS I: Major depression, severe, recurrent without psychotic features. AXIS II: deferred. AXIS III: Atypical seizure disorder, hypertension, COPD, diabetes, hypothyroidism, gastroesophageal reflux disease. AXIS IV: Moderate. AXIS V: Global assessment of functioning is 40. PLAN: At this time, the patient is admitted to the hospital for a comprehensive medical, psychological, and social evaluation. She will be comprehensively evaluated from both a medical, psychological, and social standpoint and treated with antidepressant and mood stabilizing medications as deemed appropriate. Her long-term prognosis is guarded. TRANSINT:[id number] Voice Confirmation ID: [id number] DOCUMENT ID: [id number] CELESTE FERNANDEZ MD at 1200 CC: [id number] DICTATION DATE: 09/29/19 1557 STRAP MAKER: 09/29/19 181 ADM IN [place] [id number] [place] [address]
--- NOTE | 2019-10-01 02:15 | NUR ---
B.) PT IS ALERT AND ORIENTED X4. SHE IS ABLE TO AMBULATE ON HER OWN WITHOUT ASSISTANCE. SHE IS ABLE TO MAKE HER NEEDS KNOWN. SHE IS PLEASANT WITH STAFF AND PEERS. SHE ATTEMPTS TO HELP OTHER PEERS. I.) PROVIDED PM MEDICATIONS. R.) COMPLIANT WITH ALL MEDICATIONS. P.) WILL CONTINUE TO MONITOR.
[2019-10-01 05:39] VITALS: BP 123/59
--- NOTE | 2019-10-01 07:15 | NUR ---
TECH ALERTED NURSE THAT PT WAS HAVING A SEIZURE. NURSE 2X WENT INTO PT ROOM. PT SERIZURE LASTED 3 1/2 MINUTES. NO INJURY NOTED. PT WAS IN HER BED DURING THE TIME OF THE SEIZURE. PT CAME AROUND FROM THE SEIZURE STATING THAT DIDNT LAST LONG AT ALL. TYLENOL 650 MG PO PRN ORDERED PER DR. WOOD. WILL CONT TO MONITOR. DILATIN LEVEL WITHIN NORMAL LIMITS.
[2019-10-01 07:31] LABS: ANION GAP 16.5 mmol/L (8-16); CALCIUM 8.9 mg/dL (8.5-10.1); CARBON DIOXIDE 25.2 mmol/L (21.0-32.0); CREATININE - SERUM 0.9 mg/dL (0.6-1.3); POTASSIUM - SERUM 5.7 mmol/L (3.5-5.1)
--- NOTE | 2019-10-01 08:10 | NUR ---
PT SITTING IN W/C AWAITING BREAKFAST. NURSE ASKED PT TO SIT IN W/C UNTIL AFTER BREAKFAST SINCE IT SO SOON AFTER HER SEIZURE. PT AGREED. PT IS ALERT AND ORIENTED 4X. PT CAN AMBULATE. PT COMPLIANT WITH MEDS, VITALS AND ASSESSMENTS. PT CALLED ABOUT BRINGING HER SOME CLOTHES THIS SHIFT. NURSE STATED HE COULD BRING HER SOME CLOTHES THIS SHIFT.
[2019-10-01 08:30] VITALS: BP 131/75
[2019-10-01 11:28] VITALS: Ht 149.9 cm; Wt 64.1 kg
--- NOTE | 2019-10-01 13:09 | PN ---
PATIENT:KULWANT BONILLA MEDICAL RECORD: [id number] LOCATION:[address] ADMISSION DATE: 09/29/19 PROGRESS NOTE DATE OF SERVICE: 09/30/2019 SUBJECTIVE: The patient's case was discussed with staff. She has no new complaint. OBJECTIVE: The patient's mood is depressed, but significantly better. She denies that she would seek to harm herself or others. She tells me she is anxious to go home. She intends to go home with her and son who are the primary source of her current distress. I have discussed various options with her including allowing us to assist her in finding a different place to live. She says that she will consider that advice. Other suggestions about asking the mentally ill son to leave the house if he will not go to treatment or looking at putting her with Alzheimer's into a long-term, she just flatly rejects. I think her prognosis is guarded. A dramatic improvement she has had with the change of environment indicates that her problems are largely related to situational circumstances. TRANSINT:[id number] Voice Confirmation ID: [id number] DOCUMENT ID: [id number] CELESTE FERNANDEZ MD at 1309 CC: [id number] DICTATION DATE: 09/30/19 1542 REVERSAL PRINT INSPECTOR: 09/30/19 2353 ADM IN [place] [id number] [place] [address]
[2019-10-01] MEDS ORDERED: OSCAL D TABLET PO (15:12)
[2019-10-01] MEDS ORDERED: ZOLOFT100 MG PO (15:12)
[2019-10-01] MEDS ORDERED: Vitamin D PO (15:13)
--- NOTE | 2019-10-01 20:56 | NUR ---
B.) PT IS ALERT AND ORIENTED X4. SHE IS ABLE TO AMBULATE WITHOUT ASSIST. SHE IS PLEASANT WITH STAFF AND PEERS. SHE IS ABLE TO MAKE HER NEEDS KNOWN. I.) PROVIDED PM MEDICATIONS PRESCRIBED. R.) COMPLIANT WITH ALL MEDICATIONS. P.) WILL CONTINUE TO MONITOR.
--- NOTE | 2019-10-02 07:50 | NUR ---
PT SITTING AND SOCIALIZING WITH PEERS. RESP EVEN AND NONLABORED. NO ACUTE DISTRESS NOTED. PT CAN MAKE NEEDS KNOWN. AMBULATES. OT C/O OF PAIN TO LOWER TO BACK. PT IS COMPLIANT WITH MEDS, VITALS AND ASSESSMENTS. PT IS SUPPOSE TO DISCHARGE HOME TODAY. A.M. LABS DONE. WILL CONT PLAN OF CARE.
[2019-10-02 08:47] LABS: ANION GAP 16.9 mmol/L (8-16); CALCIUM 8.9 mg/dL (8.5-10.1); CARBON DIOXIDE 23.9 mmol/L (21.0-32.0); POTASSIUM - SERUM 5.8 mmol/L (3.5-5.1)
[2019-10-02 09:05] VITALS: BP 102/63
--- NOTE | 2019-10-02 09:16 | NUR ---
Spoke with Dr. holloway about pts potassium level of 5.8. doctor Dr. holloway asked if she had a high level prior to admission and to put on a low potassium diet and follow up with her pcp after discharge. PCP office stated this was a new onset that she had one prior in June but was not being treated at that time. Set a appointment with PCP to follow up with K+ and new diet.
--- NOTE | 2019-10-02 09:25 | NUR ---
PT IS NOT DISCHARGING AT THIS TIME. CHANGED PT'S DIET AT THIS TIME. WILL CONT TO MONITOR.
--- NOTE | 2019-10-02 09:31 | NUR ---
ACID MIXER CALLED TO SON AND NOTFIED THAT SHE WOULD NOT BE DISCHARGING THIS SHIFT DUE TO INCREASED K+ AND UNKNOWN MICROBIOLOGY FOR URINE.
--- NOTE | 2019-10-02 10:27 | NUR ---
DR. WOOD NEW ORDERS: ROCEPHIN 1 GM IM AND KAYEXELATE 15 GM NOW AND AT 1999. MEDICATIONS ORDERED AND NOTIFIED PT OF NEW MEDICATIONS. SHE WAS IN AGREEMENT.
--- NOTE | 2019-10-02 12:21 | NUR ---
PT RECEIVED FIRST DOSE OF ROCEPHIN 1 GRAM IM. PT TOLERATED WELL. WILL MONITOR FOR S/SX OF REACTION TO ANTIBIOTIC.
--- NOTE | 2019-10-02 12:51 | NUR ---
PT C/O OF SEVERE PAIN AFTER EATING. PT STATES IT HURTS EVERYTIME SHE EATS BUT TODAY IS THE WORST ITS BEEN. DR. WOOD CALLED: PRILOSEC ORDERED NOW. WILL ADMINISTER WHEN AVAILABLE.
--- NOTE | 2019-10-02 13:13 | NUR ---
PT STATED SHE HAD N/V AND DIARRHEA. SHE STATED SHE FELT BETTER.
--- NOTE | 2019-10-02 14:37 | PN ---
PATIENT:KULWANT BONILLA MEDICAL RECORD: [id number] LOCATION:[facility] Le112 ADMISSION DATE: 09/29/19 PROGRESS NOTE DATE OF SERVICE: 10/01/2019 SUBJECTIVE: The patient's case was discussed with staff. She has no new complaint. OBJECTIVE: The patient denies intent to harm herself or others. She is tolerating her medicines well. She has considered options that I have discussed with her and says it is her intention to return home. She no longer feels suicidal and is anxious to leave. She accepts that her family is not going to stop behaving in the manner they have and she discusses some alternate coping skills such as going to her son's house or perhaps staying with her sister for a little while. I anticipate she can be transitioned out of the hospital tomorrow. She does have followup appointments with a number of doctors including the Replaced By [facility]. TRANSINT:[id number] Voice Confirmation ID: [id number] DOCUMENT ID: [id number] CELESTE FERNANDEZ MD at 1437 CC: [id number] DICTATION DATE: 10/01/19 1511 HONING JOB SETTER: 10/01/19 2102 ADM IN [facility] [address] [place] [address]
--- NOTE | 2019-10-02 16:23 | NUR ---
PT HAD SEIZURE LIKE MOVEMENTS THIS SHIFT. NO POSTICTAL STATE NOTED. PT DENIES HEADACHE. PT STATED SHE JUST FELT ICKY.
[2019-10-02 20:21] VITALS: BP 132/69
--- NOTE | 2019-10-02 20:23 | NUR ---
PATIENT IS VERY PLEASANT, NOT CONFUSED AND DENIES S/I. COMPLIANT WITH MEDS. WILL FOLLOW POC
--- NOTE | 2019-10-03 08:24 | NUR ---
PT SITTING ON EDGE OF BED. PT IS VERY PLESANT WITH STAFF AND PEERS. ALERT AND ORIENTED X4. PT IS CURRENTLY GETTING LAB DRAW FOR POTASSIUM SERUM. PT CAN MAKE ALL NEEDS KNOWN AND AMBUALATES. PT IS COMPLIANT WITH VITALS, ASSESSMENTS AND MEDS. WILL CONT SEIZURE PRECAUTIONS. WILL CONT PLAN OF CARE.
--- NOTE | 2019-10-03 10:57 | PN ---
PATIENT:KULWANT BONILLA MEDICAL RECORD: [id number] LOCATION:[facility] Le112 ADMISSION DATE: 09/29/19 PROGRESS NOTE DATE OF SERVICE: 10/02/2019 SUBJECTIVE: The patient's case was discussed with staff. She has no new complaint. OBJECTIVE: The patient denies wanting to hurt herself. Her mood has significantly improved. Unfortunately, she has some abnormal lab results and is going to receive additional medical attention prior to discharge. TRANSINT:[id number] Voice Confirmation ID: [id number] DOCUMENT ID: [id number] CELESTE FERNANDEZ MD at 1057 CC: [id number] DICTATION DATE: 10/02/19 1535 INTERMEDIATE DESIGNER: 10/02/19 1722 ADM IN [place] [id number] [place] [id number]
--- NOTE | 2019-10-03 16:57 | NUR ---
DR. WOOD STATED MAYBE TOMORROW SHE CAN GO HOME SHE WANTED TO CHECK HER LABS AGAIN. TO MAKE SURE SHE WAS MEDICAL STABLE TO GO HOME.
[2019-10-03 20:40] VITALS: BP 128/67
--- NOTE | 2019-10-03 21:05 | NUR ---
PATIENT IS PLEASANT, COMPLIANT WITH MEDS AND ALL OF STAFF'S RULES, SHE IS RESPECTFUL AND GRATEFUL FOR ALL HELP. WILL FOLLOW POC
[2019-10-04 08:55] VITALS: BP 152/76
--- NOTE | 2019-10-04 09:17 | PN ---
PATIENT:KULWANT BONILLA MEDICAL RECORD: [id number] LOCATION:[facility] ADMISSION DATE: 09/29/19 PROGRESS NOTE DATE OF SERVICE: 10/03/2019 SUBJECTIVE: The patient's case was discussed with staff. She has no new complaint. OBJECTIVE: The patient denies intent to harm herself or others. Her mood is only mildly depressed. ASSESSMENT: Major depression. PLAN: The patient has had some issues with her potassium level that are being addressed by Dr. Cazares. She will be monitored for clinical changes. Her long-term prognosis is guarded. TRANSINT:[id number] Voice Confirmation ID: [id number] DOCUMENT ID: [id number] CELESTE FERNANDEZ MD at 0917 CC: [id number] DICTATION DATE: 10/03/19 1133 HEALTH INSPECTOR: 10/03/19 1159 ADM IN [place] [id number] [place] [address]
--- NOTE | 2019-10-04 11:20 | NUR ---
PT SITTING AND SOCIALIZING WITH OTHER PEERS. NO ACUTE DISTRESS NOTED. PT IS COMPLIANT WITH MEDS, VITALS AND ASSESSMENTS. PT DENIES SI. PT IS AWAITING DISCHARGE. UNSURE IF SHE WILL LEAVE AT THIS TIME. WILL CONT PLAN OF CARE.
--- NOTE | 2019-10-04 18:06 | NUR ---
PT POTASSIUM IS 5.7 WILL MAKE DOCTOR AWARE.
--- NOTE | 2019-10-04 18:14 | NUR ---
SPOKE WITH DR. WOOD ABOUT PT POTASSIUM LEVELS. NEW ORDER TO RECHECK LEVELS IN THE AM AND ORDER 30 MG OF KAYEXELATE. PT IS IN UNDERSTANDING OF THE ORDERS.
[2019-10-04 19:37] VITALS: BP 142/72
--- NOTE | 2019-10-04 20:29 | NUR ---
RECEIVED IN DAYROOM. SITTING IN CHAIR WITH PEERS AT HER SIDE. CALM AND COOPERATIVE WITH CARE AND ASSESSMENT. NO STATEMENTS OF SELF HARM MADE THIS EVENING. ENCOURAGE TO EXPRESS NEEDS. CONTINUES TO SIT WITH PEERS. CONTINUE PLAN OF CARE
--- NOTE | 2019-10-05 06:20 | NUR ---
PATIENT UNCONSCIOUS. NO RESPONSE TO PAINFUL STIMULI. RAPID CALLED BUT CANCELED BECAUSE PATIENT ARROUSED. VITAL SIGNS STABLE.
[2019-10-05 10:10] VITALS: BP 134/77
--- NOTE | 2019-10-05 10:34 | NUR ---
Nutrition Follow-up: Diet: Diabetic/Low potassium PO intake: 100% Last BM: 10/03/19 x 5. WT: 142# (10/04/19); Admit WT: 141# (09/29/19) Meds noted: lantus, metformin. Labs noted: K 4.2, POC Glu 110. Recommend continue current diet. RD following.
--- NOTE | 2019-10-05 10:46 | NUR ---
KEFLEX 500 MG PO BID X 7 DAYS CALLED INTO [facility] PER MD REQUEST.
--- NOTE | 2019-10-05 15:28 | PN ---
PATIENT:KULWANT BONILLA MEDICAL RECORD: [id number] LOCATION:[facility] ADMISSION DATE: 09/29/19 PROGRESS NOTE DATE OF SERVICE: 10/04/2019 SUBJECTIVE: The patient's case was discussed with staff. She has no new complaint. OBJECTIVE: The patient is in good behavioral control. She has poor insight about her situation. ASSESSMENT: Major depression. PLAN: The patient is not suicidal. Her mood is euthymic and she has a reasonable plan to deal with her stressful home situation. Pending some laboratory results on her potassium. She will be discharged this afternoon. TRANSINT:[id number] Voice Confirmation ID: [id number] DOCUMENT ID: [id number] CELESTE FERNANDEZ MD at 1528 CC: [id number] DICTATION DATE: 10/04/19 1014 RESEARCH CLERK: 10/04/19 1059 DIS IN 10/05/19 [facility] [address] [place] [address]
--- NOTE | 2019-10-07 10:42 | DS ---
PATIENT:KULWANT BONILLA :46 MEDICAL RECORD: [id number] DISCHARGE SUMMARY ADMISSION DATE: 09/29/19 DISCHARGE DATE: 10/05/19 IDENTIFYING DATA: The patient is 68 years old and she was admitted to the hospital on a voluntary basis. The patient was brought to the Emergency Room via ambulance. Her family found out that she was planning to kill herself. She had been sleeping with a knife under her pillow for several days and was trying to muster enough courage to cut her throat or wrist. She endorsed numerous depressive symptoms and related most of her stressors to the fact that her has Alzheimer disease and is becoming increasingly difficult to manage. She is also distressed by her 43-year-old son who is mentally ill, lives with her and is constantly yelling at hallucinations and talking to himself and behaving in a bizarre and paranoid manner. HOSPITAL COURSE: The patient was admitted to the hospital and evaluated from both a medical, psychological, and social standpoint. She was treated with antidepressant medication and showed improvement. Various options for her to fix her underlying psychosocial stressors were explored and all of them were rejected by her. She was unhappy with the home life and situation that she had at home, but did not want to do anything to change it. She was subsequently discharged to that environment at her request; however, report was made to adult protective services for a welfare check. DISCHARGE DIAGNOSES: AXIS I: Major depression, severe, recurrent without psychotic features. AXIS II: Cluster C personality traits. AXIS III: Atypical seizure disorder, hypertension, chronic obstructive pulmonary disease, diabetes, hypothyroidism, and gastroesophageal reflux disease. AXIS IV: Moderate stressors. AXIS V: Global assessment of functioning is 45. PLAN: At the time of discharge, the patient did not have thoughts of harming herself or others. She was tolerating her medicines well. Followup was arranged with outpatient mental health and she was given options to improve her home situation, which she can follow through on at a later date if she chooses. TRANSINT:[id number] Voice Confirmation ID: [id number] DOCUMENT ID: [id number] CELESTE FERNANDEZ MD at 1042 CC: [id number] DICTATION DATE: 10/06/19 1234 DIRECTOR OF DISTRICT OFFICE: 10/07/19 0424 DIS IN 10/05/19 [facility] [address] [facility] [place] [address]
== END 2019-10-05 11:30 | disposition home or self-care (01) | DRG 885 ==
LOC: D.ER 09:30 → D.PSYCH 13:41
PROVIDERS: Family Medicine; ADMIT Psychiatry & Neurology Psychiatry; ATTEND Psychiatry & Neurology Psychiatry
DX: F33.2 Major depressive disorder, recurrent severe without psychotic features (principal); R45.851 Suicidal ideations; E87.1 Hypo-osmolality and hyponatremia; N39.0 Urinary tract infection, site not specified; G40.909 Epilepsy, unspecified, not intractable, without status epilepticus; I10 Essential (primary) hypertension; J44.9 Chronic obstructive pulmonary disease, unspecified; E03.9 Hypothyroidism, unspecified; K21.9 Gastro-esophageal reflux disease without esophagitis; I25.10 Atherosclerotic heart disease of native coronary artery without angina pectoris; I48.91 Unspecified atrial fibrillation; E13.9 Other specified diabetes mellitus without complications; E78.5 Hyperlipidemia, unspecified; J45.909 Unspecified asthma, uncomplicated; J43.9 Emphysema, unspecified; E87.5 Hyperkalemia; E83.51 Hypocalcemia; E55.9 Vitamin D deficiency, unspecified; K21.0 Gastro-esophageal reflux disease with esophagitis; H40.9 Unspecified glaucoma; G89.4 Chronic pain syndrome; B96.20 Unspecified Escherichia coli [E. coli] as the cause of diseases classified elsewhere; E13.22 Other specified diabetes mellitus with diabetic chronic kidney disease; I12.9 Hypertensive chronic kidney disease with stage 1 through stage 4 chronic kidney disease, or unspecified chronic kidney disease; N18.9 Chronic kidney disease, unspecified; E13.40 Other specified diabetes mellitus with diabetic neuropathy, unspecified

== ENCOUNTER 2019-11-12 11:18 | Outpatient (CLI) | payer MEDICARE, OTHER ==
[~2019-11-12] VITALS: Ht 149.9 cm; Wt 64.5 kg
--- NOTE | ~2019-11-12 | HEMODYNAMI ---
PATIENT:KULWANT BONILLA MEDICAL RECORD: [id number] : 46 LOCATION:[facility] ADMISSION DATE: 11/12/19 Generatedon:11/12/201913:23 Patient name: KULWANT BONILLA Patient #: [id number] SSN: [id number] : 1950 Date of study: 11/12/2019 Page: Of Hemodynamic Procedure Report Patient Data Patient Demographics Procedure consent was obtained First Name: KULWANT Gender: Female Last Name: CHAD : 1950 Middle Initial: AMBREEN Age: 69 year(s) Patient #: [id number] Race: SSN: [id number] Additional ID: [id number] Contact details Address: [address] [place] [address] State: [place] City: [place] Zip code: [address] Past Medical History Allergies Allergen Reaction Date Comments Reported Sulfa drugs 03/19/2017 Other allergy 11/12/2019 SULFA Admission Admission Data Admission Date: 11/12/2019 Admission Time: 11:18 Arrival Date: 11/12/2019 Arrival Time: 0:00 Admit Source: Other Insurance Payor: Medicare HIC #: [id number] Height (in.): 57 BSA: 1.58 (m2) Height (cm.): 144.78 BMI: 31.81 (kg/m2) Weight (lbs.): 147 Weight (kg.): 66.68 Procedure Procedure Types Cath Procedure Diagnostic Procedure PPM/ICD Loop Recorder Implant Procedure Description Procedure Date Procedure Date: 11/12/2019 Procedure Start Time: 13:08 Procedure End Time: 13:22 Procedure Staff Name Function Cherie Lundy RT Monitor Mary Jasmine RT Scrub Rene Chaudhary RN Nurse Dilan Pantoja MD Performing Physician Indication Syncope Procedure Data Procedure Complications No complications Procedure Medications Medication Administration Route Dosage 0.9% NaCl I.V. 100 ml/hr Oxygen etCO2 Nasal cannula 2 l/min Lidocaine 2% added to field 20 Ancef (1Gm/50ml NS) I.V.P.B 1 g Versed I.V. 1 mg Fentanyl I.V. 50 mcg Hemodynamics Rest BSA: 1.58 (m2) O2 Consumption: Estimated: 214.88 (ml/min) O2 Consumption indexed : Estimated:136 (ml/min/m) Pre Cath Intra NCS Post Cath Vital Signs Time Heart Resp SPO2 etCO2 NIBP (mmHg) Rhythm Pain Sedation Rate (ipm) (%) (mmHg) Status Level (bpm) 12:51:21 101 21 96 0 160/100(137) NSR 0 (11) 10(A) , No pain 12:55:40 100 10 97 0 152/84(119) NSR 0 (11) 10(A) , No pain 13:00:00 99 13 95 27.8 154/84(115) NSR 0 (11) 10(A) , No pain 13:04:16 93 19 98 34.6 137/81(115) NSR 0 (11) 10(A) , No pain 13:08:28 95 13 99 38.3 150/89(125) NSR 0 (11) 9(A) , No pain 13:12:44 97 14 100 39.1 159/90(119) NSR 0 (11) 9(A) , No pain 13:17:02 98 15 100 36.1 157/89(128) NSR 0 (11) 10(A) , No pain 13:21:22 95 10 21.8 147/86(116) NSR 0 (11) 10(A) , No pain Medications Time Medication Route Dose Verified Delivered Reason Notes Effectiv eness by by 12:59:17 0.9% NaCl I.V. 100 Rene Rene Per ml/hr Jet Chaudhary physician RN RN 12:59:26 Oxygen etCO2 2 Rene Rene for low 02 Nasal l/min Jet Chaudhary sats cannula RN RN 12:59:39 Lidocaine added 20ml Rene Rene for local 2% to vial Lorigan Lorigan anesthetic field RN RN 13:00:01 Ancef I.V.P.B 1 g Rene Rene Per (1Gm/50ml Jet Chaudhary physician NS) RN RN 13:07:12 Versed I.V. 1 mg Rene Rene for Lorigan Lorigan sedation RN RN 13:07:22 Fentanyl I.V. 50 Rene López for [facility] Jet Chaudhary sedation RN director of gift planning Log Time Note 12:18:06 Informed consent obtained and on chart 12:20:09 Arrival Date: 11/12/2019 12:00:00 AM 12:20:34 Insurance Payor : Medicare 12:20:37 Admit Source: Other 12:20:52 Patient Height : 57 inches 12:21:01 Patient Weight : 147 lbs 12:23:20 Indication : Syncope 12:24:29 Procedure Status PPM/ Gen Change/ Lead Revision/ Temp. 12:37:30 Mary Jasmine RT(R) (CV) sent for patient. Start room use. 12:37:33 Time tracking: Regular hours (M-F 7:00 - 5:00) 12:37:41 Plan of Care:Hemodynamics will remain stable., Cardiac rhythm will remain stable., Comfort level will be maintained., Respiratory function will remain adequate., Patient/ family verbilizes understanding of procedure., Procedure tolerated without complication., Recovers from procedure without complications.. 12:49:35 Patient arrived from Pre/Post Procedure Room to CCL 1. Patient remains on bed/stretcher for procedure. 12:50:05 Warm blankets applied, and jamie hugger turned on for patient comfort. 12:50:06 Correct patient and procedure confirmed by team. 12:50:08 ECG and BP/O2 sat monitors applied to patient. 12:50:09 Vital chart was started 12:50:12 Full Disclosure recording started 12:50:28 H&P Date Dictated: 11/02/2019 Within 30 days and on chart.. 12:50:30 Pre-procedure instructions explained to patient. 12:50:30 Pre-op teaching completed and patient verbalized understanding. 12:50:34 Family in patients room. 12:50:37 Patient NPO since Breakfast. 12:50:44 Is the patient allergic to Iodine/contrast media? No. 12:50:46 Was the patient premedicated? N/A 12:51:01 Patient allergic to Other allergySULFA 12:51:06 Patient diabetic? Yes. 12:52:24 If diabetic: On Metformin? Yes 12:52:29 If on Metformin: Last Dose? 11/11/2019 12:52:31 Patient not . Patient is over age 55. 12:52:33 ----Pre-sedation anethsthesia assessment.---- 12:52:36 Previous problem with sedation/anesthesia? No ? 12:52:38 Snore? Yes 12:52:42 Sleep apnea? Yes 12:52:43 Deviated septum? No 12:52:45 Opens mouth fully? Yes 12:52:46 Sticks out tongue? Yes 12:52:51 Airway obstruction? Yes ASTHMA AND COPD 12:52:57 Dentures? Yes TIGHT 12:53:07 IV patent on arrival in right antecubital with 0.9% NaCl at [facility]. 12:53:12 Patient pain scale 0/10 ?. 12:53:53 Lab results not drawn. 12:54:42 Stress Test: no; N/A ? 12:54:49 Left chest area was prepped with chlora-prep and draped in sterile fashion 12:54:54 Sharps counted by scrub and verified by R.N. 12:54:54 Alarms reviewed by R. N. 12:59:17 0.9% NaCl 100 ml/hr I.V. was administered by Rene Chaudhary RN; Per physician; Verbal order read back and verified. 12:59:26 Oxygen 2 l/min etCO2 Nasal cannula was administered by Rene Chaudhary RN; for low 02 sats; Verbal order read back and verified. 12:59:39 Lidocaine 2% 20ml vial added to field was administered by Rene Chaudhary RN; for local anesthetic; Verbal order read back and verified. 13:00:01 Ancef (1Gm/50ml NS) 1 g I.V.P.B was administered by Rene Chaudhary RN; Per physician; Verbal order read back and verified. 13:05:37 --------ALL STOP TIME OUT------ 13:05:38 Final Timeout: patient, procedure, and site verified with staff and physician. All members of the team are in agreement. 13:05:40 Left chest site verified by team. 13:05:44 Fire Safety Assessment: A--An alcohol-based skin anteseptic being used preoperatively., C--Open oxygen or nitrous oxide is being used., D--An ESU, laser, or fiber-optic light is being used. 13:05:52 Physical assessment completed. ASA score P 2 - A patient with mild systemic disease as per Dilan Pantoja MD. 13:05:57 Sedation plan: IV Moderate Sedation Medication:Versed, Fentanyl 13:06:34 Medtronic Linq Loop Recorder opened to sterile field. 13:07:12 Versed 1 mg I.V. was administered by Rene Chaudhary RN; for sedation; Verbal order read back and verified. 13:07:22 Fentanyl 50 mcg I.V. was administered by Rene Chaudhary RN; for sedation; Verbal order read back and verified. 13:07:58 Medtronic account maintenance representative ANNE MARIE DUPONT present for procedure. 13:08:00 Local anesthetic to Chest area with Lidocaine 2% by Dilan Pantoja MD.INITIAL ACCESS ONLY 13:08:06 Incision made to left subclavicular area. 13:08:45 Linq was inserted subcutaneously to left chest. 13:10:01 Lt Chest incision was dressed with Dermabond. 13:13:06 Procedure ended.(Physican Out) 13:13:16 Sharps counted by scrub and verified by R.N. 13:13:23 Post procedure rhythm: unchanged. 13:13:28 Post procedure instruction explained to patient.Patient verbalizes understanding. 13:13:29 Patient needs reinforcement of post procedure teaching. 13:22:11 Procedure and supply charges have been captured, reviewed, submitted and are correct. 13:22:17 Procedure Complication : No complications 13:22:19 Vital chart was stopped 13:22:22 Operative report dictated upon procedure completion. 13:22:23 See physician's report for complete and final results. 13:22:25 Report given to Pre/Post Procedure Room. 13:22:28 Patient transfered to Pre/Post Procedure Room with Stretcher. 13:22:35 Procedure ended. 13:22:35 Full Disclosure recording stopped 13:22:40 End room use (Document Last) 13:23:16 End room use (Document Last) 13:23:30 End room use (Document Last) Device Usage Item Name Manufacture Quantity Catalog Hospital Part Current Minimal Lot# / Number Charge Number Stock Stock Serial# Code Medtronic Medtronic 1 [id number] Linq Loop [id number] Recorder EXP : 09/22/2020 Signature Audit Barry Stage Time Signature Unsigned Intra-Procedure 11/12/2019 Cherie Lundy 1:23:16 PM RT(R) Intra-Procedure 11/12/2019 Rene 1:23:30 PM Jet TROTTER Intra-Procedure 11/12/2019 Dilan Santana 1:23:47 PM [place] [facility] [address] [place] [address]
[~2019-11-12 11:18] MED LIST changes: +BROVANA15 MCG/2 M INH; +OSCAL D TABLET PO; +PRINIVIL20 MG PO; +Vitamin D PO; +ZOLOFT100 MG PO
[2019-11-12] MEDS ORDERED: GABAPENTIN300 MG PO (12:10)
[2019-11-12 12:12] VITALS: BP 135/74; Ht 149.9 cm; Wt 64.5 kg
[2019-11-12] MEDS ORDERED: IRON 65MG TAB (12:14)
[2019-11-12] MEDS ORDERED: ZONEGRAN100 MG PO (12:15)
[2019-11-12] MEDS ORDERED: XALATAN 0.0052.5 ML EACH EYE (12:16)
[2019-11-12] MEDS ORDERED: BROVANA15 MCG/2 M INH (12:17)
--- NOTE | 2019-11-12 13:30 | NUR ---
PT ARRIVED BY STRETCHER. PLACED ON MONITORS. ASSESSMENT COMPLETED. VSS. CALL LIGHT WITHIN REACH. FAMILY AT BEDSIDE.
--- NOTE | 2019-11-12 13:45 | NUR ---
PT SITTING UP IN BED. SET UP WITH DRINK AND SANDWICH TRAY. FAMILY AT BEDSIDE. DR. VELASCO ROUNDED AND SPOKE WITH PT AND PT'S FAMILY AND [employer] AT BEDSIDE TO ORIENT THEM ON USE OF TRANSMITTER.
--- NOTE | 2019-11-12 14:15 | NUR ---
PT RESTING COMFORTABLY. LEFT UPPER CHEST DRESSING C/D/I. NO S/S OF HEMATOMA NOTED. CALL LIGHT WITHIN REACH.
--- NOTE | 2019-11-12 14:30 | NUR ---
PIV D/C'D WITH CATH TIP INTACT. TOLERATED WELL. VSS. LEFT UPPER CHEST DRESSING C/D/I. NO S/S OF HEMATOMA NOTED. PT INSTRUCTED TO GET UP AND DRESSED. NO ASSISTANCE NEEDED. CALL LIGHT WITHIN REACH.
--- NOTE | 2019-11-12 14:45 | NUR ---
PT AMBULATED TO RESTROOM AND VOIDED WITHOUT DIFFICULTY. DISCUSSED DISCHARGE INSTRUCTIONS WITH PT AND PT'S FAMILY. THEY VOICED UNDERSTANDING.
--- NOTE | 2019-11-12 14:50 | NUR ---
PT TAKEN OUT TO VEHICLE BY WHEELCHAIR. NO S/S OF DISTRESS NOTED. ALL BELONGINGS AND PAPERWORK IN HAND.
--- NOTE | 2019-11-16 12:51 | OP ---
PATIENT NAME: KULWANT BONILLA MEDICAL RECORD: [id number] :46 LOCATION:D.CAT ADMISSION DATE: SURGEON: ITALO VELASCO MD DATE OF OPERATION: 11/12/2019 PROCEDURE: LINQ. DESCRIPTION OF PROCEDURE: After local anesthesia with lidocaine, a single incision was made with the close device. The LINQ was placed into the fourth intercostal space without difficulty. After adequate R waves were obtained, the patient returned to the perez in stable condition. TRANSINT:[id number] Voice Confirmation ID: [id number] DOCUMENT ID: [id number] ITALO VELASCO MD at 1251 CC: [id number] DICTATION DATE: 11/12/19 1319 PILL COATER: 11/12/19 1404 DEP CLI 11/12/19 [place] [address] [place] [address]
== END 2019-11-12 14:50 | disposition home or self-care (01) ==
LOC: D.CATH 11:18
PROVIDERS: ATTEND Internal Medicine Interventional Cardiology
DX: I25.10 Atherosclerotic heart disease of native coronary artery without angina pectoris (principal); R55 Syncope and collapse; E11.9 Type 2 diabetes mellitus without complications; E78.5 Hyperlipidemia, unspecified; I10 Essential (primary) hypertension; R07.9 Chest pain, unspecified; R06.00 Dyspnea, unspecified; K21.9 Gastro-esophageal reflux disease without esophagitis; Z79.84 Long term (current) use of oral hypoglycemic drugs

== ENCOUNTER 2019-12-15 10:03 | Emergency (ER) | payer MEDICARE, OTHER ==
[~2019-12-15] VITALS: Ht 149.9 cm; Wt 65.0 kg
[~2019-12-15 10:03] MED LIST changes: +GABAPENTIN300 MG PO; +IRON 65MG TAB
[2019-12-15 10:10] VITALS: Ht 149.9 cm; Wt 65.0 kg
[2019-12-15 11:10] LABS: BASOPHILS 0.4 % (0-2); EOSINOPHILS 1.9 % (0-7); HEMATOCRIT 46.7 % (36.0-48.0); IMMATURE GRANULOCYTES 0.1 % (0-5); LYMPHOCYTES 27.3 % (15-50); MCH 30.6 pg (26.0-34.0); MCHC 32.1 g/dL (31.0-37.0); MCV 95.3 fL (80.0-100.0); MEAN PLATELET VOLUME 9.1 fL (7.4-10.4); MONOCYTES 10.6 % (2-11); NEUTROPHILS 59.7 % (40-80); PLATELET COUNT 280 10x3/uL (130-400); RDW 12.9 % (11.5-14.5)
[2019-12-15 11:13] LABS: BILIRUBIN NEGATIVE (NEGATIVE); GLUCOSE NEGATIVE (NEGATIVE); KETONE NEGATIVE (NEGATIVE); NITRITE NEGATIVE (NEGATIVE); SPECIFIC GRAVITY 1.005 (1.005-1.020); UROBILINOGEN NORMAL (NORMAL)
[2019-12-15 11:24] LABS: ANION GAP 15.7 mmol/L (8-16); CALCIUM 8.8 mg/dL (8.5-10.1); CARBON DIOXIDE 26.1 mmol/L (21.0-32.0); CREATININE - SERUM 0.9 mg/dL (0.6-1.3); POTASSIUM - SERUM 5.8 mmol/L (3.5-5.1)
[2019-12-15 11:30] LABS: ALBUMIN 3.9 g/dL (3.4-5.0); BILIRUBIN - TOTAL 0.27 mg/dL (0.2-1.3)
[2019-12-15 12:28] VITALS: BP 143/73
== END 2019-12-15 12:29 | disposition home or self-care (01) ==
LOC: D.ER 10:03
PROVIDERS: Family Medicine
DX: E87.5 Hyperkalemia (principal); J06.9 Acute upper respiratory infection, unspecified; R05 Cough; R09.81 Nasal congestion; E11.9 Type 2 diabetes mellitus without complications; Z79.4 Long term (current) use of insulin; I10 Essential (primary) hypertension; Z95.5 Presence of coronary angioplasty implant and graft; I48.91 Unspecified atrial fibrillation; I25.10 Atherosclerotic heart disease of native coronary artery without angina pectoris; J44.9 Chronic obstructive pulmonary disease, unspecified; K21.9 Gastro-esophageal reflux disease without esophagitis

== ENCOUNTER → 2020-05-10 09:18 | Outpatient (CLI) | payer MEDICARE, OTHER ==
[2019-12-15 10:10] VITALS: BMI 28.9
== END | disposition home or self-care (01) ==
LOC: D.LAB 08:53
PROVIDERS: ATTEND Family Medicine
DX: Z13.9 Encounter for screening, unspecified (principal)

== ENCOUNTER → 2020-05-13 08:57 | Outpatient (CLI) | payer MEDICARE, OTHER ==
[2019-12-15 10:10] VITALS: BMI 28.9
== END | disposition home or self-care (01) ==
LOC: D.RT 04-25 11:00 → D.RAD 04-25 11:30 → D.RT 08:30
PROVIDERS: ATTEND Internal Medicine Pulmonary Disease
DX: Z13.9 Encounter for screening, unspecified (principal); J45.909 Unspecified asthma, uncomplicated

== ENCOUNTER 2020-05-23 16:00 | Outpatient (CLI) | payer MEDICARE, OTHER ==
[2019-12-15 10:10] VITALS: BMI 28.9
== END 2020-05-23 17:00 | disposition home or self-care (01) ==
LOC: D.MAMMO 16:00
PROVIDERS: ATTEND Family Medicine
DX: Z12.31 Encounter for screening mammogram for malignant neoplasm of breast (principal)

== ENCOUNTER 2021-01-10 14:40 | Emergency (ER) | payer MEDICARE, OTHER ==
[~2021-01-10] VITALS: Ht 149.9 cm; Wt 61.4 kg
[~2021-01-10 14:40] MED LIST changes: +ACETAMINOPHEN500 M1 PO; +INCRUSE ELLI62.5 MCG INH
[2021-01-10 14:50] VITALS: Ht 149.9 cm; Wt 61.4 kg
[2021-01-10 15:32] LABS: BASOPHILS 0.3 % (0-2); EOSINOPHILS 2.9 % (0-7); HEMATOCRIT 38.2 % (36.0-48.0); HEMOGLOBIN 12.3 g/dL (12-16); IMMATURE GRANULOCYTES 0.1 % (0-5); LYMPHOCYTES 36.3 % (15-50); MCH 30.3 pg (26.0-34.0); MCHC 32.2 g/dL (31.0-37.0); MCV 94.1 fL (80.0-100.0); MEAN PLATELET VOLUME 8.9 fL (7.4-10.4); MONOCYTES 9.7 % (2-11); NEUTROPHIL ABS# 3.91 10x3/uL (1.56-6.13); NEUTROPHILS 50.7 % (40-80); RBC 4.06 10x6/uL (4.00-5.40); RDW 13.3 % (11.5-14.5); WBC 7.7 10x3/uL (4.8-10.8)
[2021-01-10 15:36] LABS: APTT 24.7 SECONDS (22.8-39.4); INR 1.22 (0.85-1.17); PROTIME 14.3 SECONDS (11.6-15.0)
[2021-01-10 15:40] LABS: CALCIUM 8.6 mg/dL (8.5-10.1); CHLORIDE - SERUM 107 mmol/L (98-107); CREATININE - SERUM 1.1 mg/dL (0.6-1.3); SODIUM 139 mmol/L (136-145); UREA NITROGEN 17 mg/dL (7-18); eGFR NON AFRICAN AMERICAN 52 mL/min (90-120)
[2021-01-10 15:45] LABS: ALBUMIN 3.3 g/dL (3.4-5.0); ALKALINE PHOSPHATASE 188 U/L (30-120); ALT (SGPT) 30 U/L (10-68); BILIRUBIN - TOTAL 0.13 mg/dL (0.2-1.3); MAGNESIUM - SERUM 1.5 mg/dL (1.8-2.4); PROTEIN - SERUM 7.1 g/dL (6.4-8.2)
[2021-01-10 15:48] LABS: PLATELET COUNT 290 10x3/uL (130-400)
[2021-01-10] MEDS ORDERED: INCRUSE ELLI62.5 MCG INH (15:51)
[2021-01-10 16:08] LABS: CALC OSMOLALITY 277 mosm/kg (275-300); TROPONIN-I < 0.017 ng/mL (0.000-0.060)
[2021-01-10 16:33] LABS: GLUCOSE 57 mg/dL (74-106); POTASSIUM - SERUM 6.1 mmol/L (3.5-5.1)
[2021-01-10] MEDS ORDERED: MUCINEX600 MG PO (16:53)
[2021-01-10] MEDS ORDERED: CEFUROXIME500 MG PO (16:53)
[2021-01-10 18:26] VITALS: BP 119/61
== END 2021-01-10 18:05 | disposition home or self-care (01) ==
LOC: D.ER 14:40
PROVIDERS: Emergency Medicine
DX: R07.9 Chest pain, unspecified (principal); J40 Bronchitis, not specified as acute or chronic; E87.5 Hyperkalemia; J32.9 Chronic sinusitis, unspecified; E83.42 Hypomagnesemia; E11.649 Type 2 diabetes mellitus with hypoglycemia without coma; E11.40 Type 2 diabetes mellitus with diabetic neuropathy, unspecified; I10 Essential (primary) hypertension; Z79.84 Long term (current) use of oral hypoglycemic drugs; K21.9 Gastro-esophageal reflux disease without esophagitis; J44.9 Chronic obstructive pulmonary disease, unspecified; Z99.81 Dependence on supplemental oxygen; R10.13 Epigastric pain; R06.02 Shortness of breath